=== PATIENT | female | born 1960 | race Caucasian/White ===

== ENCOUNTER → 2016-12-23 | Outpatient (CLI) | payer MEDICARE, OTHER ==
[~2016-12-23] MED LIST: ARIP15TA36 PO; ARIP5TAB13 PO; BUPR75TA6 PO; CARI350T PO; CELE200C PO; CLON2TAB16 PO; DOXY100C2 PO; DULO60CA6 PO; GABA-586 PO; HYDR-2766 PO; HYDR16TA PO; HYDR25CA75 PO; LEVO150T5 PO; MAGN250T2 PO; MELA3TAB2 PO; MINO5POW MC; NIAC500T9 PO; OMEG500C PO; PRAS50CA PO; VITA1000 PO; VITA1TAB39 PO
--- NOTE | 2016-12-23 16:20 | RAD ---
Indication low back pain. No history of recent injury. AP and lateral views of the lumbar spine were obtained as well as a coned view targeted to the lumbosacral junction. Note is made of a previous examination of the lumbar spine 02/27/2015. Vertebral height is well maintained. There are degenerative changes predominantly at L1-2 manifested as mild disc space narrowing. Some facet degenerative changes are noted in the mid and lower lumbar spine. An acute bony finding is not seen. IMPRESSION: Modest degenerative changes in the lumbar spine
== END | disposition home or self-care (01) ==
LOC: DXRADRC 15:59
DX: M47.896 Other spondylosis, lumbar region (principal)
CPT/HCPCS: 72100

== ENCOUNTER → 2017-01-12 | Outpatient (CLI) | payer MEDICARE, OTHER ==
--- NOTE | 2017-01-12 17:30 | RAD ---
AP view of the pelvis and frog-leg view of both hips Indications: Weight bearing pain of both hips. Right hip: No acute fracture or dislocation or osteolytic process or significant arthritic change is seen. Left hip: No acute fracture or dislocation or osteolytic process or significant arthritic change is seen. Calcific tendinitis of the gluteus minimus tendinous attachment to the greater trochanter is seen. Pelvis: No diastases of the symphysis pubis or either SI joint is seen. The pelvic bones are otherwise unremarkable. IMPRESSION: No significant osseous abnormality. Calcific tendinitis of the gluteus minimus tendon of the left hip.
== END | disposition home or self-care (01) ==
LOC: RAD 15:45
PROVIDERS: ATTEND General Practice
DX: M76.02 Gluteal tendinitis, left hip (principal); M25.551 Pain in right hip
CPT/HCPCS: 73521

== ENCOUNTER → 2017-09-09 | Outpatient (CLI) | payer MEDICARE, OTHER ==
--- NOTE | 2017-09-09 16:40 | RAD ---
Right shoulder radiograph 09/09/2017 INDICATION: Chronic shoulder pain. COMPARISON: None available. TECHNIQUE: 3 views the right shoulder are provided. FINDINGS: There is no acute fracture or dislocation. Bone mineralization is within normal limits. Joint spaces are maintained. Regional soft tissues are within normal limits. There is no soft tissue gas or osseous erosion. Osseous excrescence arising from the superior margin of the acromion may represent an osteochondroma given cortical medullary continuity. IMPRESSION: No acute fracture or dislocation. There may be a small osteochondroma arising from the superior margin of the acromion. Electronically signed by: Steff Camarillo MD (09/09/2017 4:38 PM) [facility]
== END | disposition home or self-care (01) ==
LOC: PMG 15:24
PROVIDERS: ATTEND Physician Assistant
DX: M25.511 Pain in right shoulder (principal); G89.29 Other chronic pain
CPT/HCPCS: 73030

== ENCOUNTER 2017-12-21 13:25 | Emergency (ER) | payer OTHER ==
[~2017-12-21] VITALS: Ht 154.9 cm; Wt 88.5 kg
[2017-12-21 14:02] LABS: BASO # 0.1 x10^3/uL (0.0-0.2); BASO % 1 % (0-3); EOS # 0.2 x10^3/uL (0.0-0.7); EOS % 3 % (0-3); HEMATOCRIT 39.4 % (36.0-47.0); HEMOGLOBIN 13.2 g/dL (12.0-15.5); LYMPH # 2.5 x10^3/uL (1.0-4.8); LYMPH % 42 % (24-48); MEAN CORPUSCULAR HEMOGLOBIN 30 pg (25-35); MEAN CORPUSCULAR HGB CONC 33 g/dL (31-37); MEAN CORPUSCULAR VOLUME 89 fL (79-100); MONO # 0.5 x10^3/uL (0.0-1.1); MONO % 9 % (0-9); NEUT # 2.7 x10^3uL (1.8-7.7); NEUT % 45 % (31-73); PLATELET COUNT 355 x10^3/uL (140-400); RED BLOOD COUNT 4.41 x10^6/uL (3.50-5.40); RED CELL DISTRIBUTION WIDTH 14.3 % (11.5-14.5); WHITE BLOOD COUNT 6.1 x10^3/uL (4.0-11.0)
[2017-12-21 14:16] LABS: ALBUMIN 3.7 g/dL (3.4-5.0); ALBUMIN/GLOBULIN RATIO 1.1 (1.0-1.7); CREATININE 1.1 mg/dL (0.6-1.0); POTASSIUM 4.1 mmol/L (3.5-5.1); TOTAL BILIRUBIN 0.3 mg/dL (0.2-1.0)
[2017-12-21] MEDS ORDERED: CEPH-264 PO (14:26)
--- NOTE | 2017-12-21 14:26 | PHYS DOC ---
Past History Past Medical History: Anxiety, Depression, Fibromyalgia, Hypertension, Other Past Surgical History: Gastric Bypass, Hysterectomy Smoking: Non-smoker Alcohol Use: None Drug Use: None Adult General Chief Complaint Chief Complaint: SKIN PROBLEM HPI HPI Patient is a 57 year old female who sent from primary care physician office because of IV antibiotics treatment for right inguinal wound. Patient has history of hidradenitis and inguinal wound for several months and treated by primary care physician with IM Rocephin on end of November but wound culture showed Proteus mirabilis with resistance to several antibiotic and patient is allergic to several other antibiotic and primary care physician recommended patient coming to ER for IV antibiotic and hospitalization. Patient is not diabetic and denies fever and chills, wound drainage, change of condition of her wound. Review of Systems Review of Systems Constitutional: Denies fever or chills [] Eyes: Denies change in visual acuity, redness, or eye pain [] HENT: Denies nasal congestion or sore throat [] Respiratory: Denies cough or shortness of breath [] Cardiovascular: No additional information not addressed in HPI [] GI: Denies abdominal pain, nausea, vomiting, bloody stools or diarrhea [] : Denies dysuria or hematuria [] Musculoskeletal: Denies back pain or joint pain [] Integument: Denies rash, reports skin lesions [] Neurologic: Denies headache, focal weakness or sensory changes [] Endocrine: Denies polyuria or polydipsia [] All other systems were reviewed and found to be within normal limits, except as documented in this note. Allergies Allergies Allergies Coded Allergies Type Severity Reaction Last Updated Verified Penicillins Allergy Unknown 05/16/13 Yes Sulfa (Sulfonamide Antibiotics) Allergy Unknown 05/16/13 Yes cefuroxime axetil Allergy Unknown 05/16/13 Yes morphine Allergy Unknown 06/15/13 Yes Physical Exam Physical Exam Constitutional: Well developed, well nourished, no acute distress, non-toxic appearance, obese. [] HENT: Normocephalic, atraumatic Eyes: PERRLA, EOMI, conjunctiva normal, no discharge. [] Neck: Normal range of motion, no tenderness, supple, no stridor. [] Cardiovascular:Heart rate regular rhythm, no murmur [] Lungs & Thorax: Bilateral breath sounds clear to auscultation [] Abdomen: Bowel sounds normal, soft, no tenderness, no masses, no pulsatile masses. [] Skin: Warm, dry, right groin area with erythema and 3 skin ulcer without sign of abscess Back: No tenderness, no CVA tenderness. [] Extremities: No tenderness, no cyanosis, no clubbing, ROM intact, no edema. [] Neurologic: Alert and oriented X 3, normal motor function, normal sensory function, no focal deficits noted. [] Psychologic: Affect normal, judgement normal, mood normal. [] Current Patient Data Vital Signs Vital Signs Date Time Temp Pulse Resp B/P (MAP) Pulse Ox O2 Delivery O2 Flow Rate FiO2 12/21/17 13:44 98.7 92 22 95 Room Air Lab Results Laboratory Tests Test 12/21/17 13:51 White Blood Count 6.1 x10^3/uL (4.0-11.0) Red Blood Count 4.41 x10^6/uL (3.50-5.40) Hemoglobin 13.2 g/dL (12.0-15.5) Hematocrit 39.4 % (36.0-47.0) Mean Corpuscular Volume 89 fL (79-100) Mean Corpuscular Hemoglobin 30 pg (25-35) Mean Corpuscular Hemoglobin Concent 33 g/dL (31-37) Red Cell Distribution Width 14.3 % (11.5-14.5) Platelet Count 355 x10^3/uL (140-400) Neutrophils (%) (Auto) 45 % (31-73) Lymphocytes (%) (Auto) 42 % (24-48) Monocytes (%) (Auto) 9 % (0-9) Eosinophils (%) (Auto) 3 % (0-3) Basophils (%) (Auto) 1 % (0-3) Neutrophils # (Auto) 2.7 x10^3uL (1.8-7.7) Lymphocytes # (Auto) 2.5 x10^3/uL (1.0-4.8) Monocytes # (Auto) 0.5 x10^3/uL (0.0-1.1) Eosinophils # (Auto) 0.2 x10^3/uL (0.0-0.7) Basophils # (Auto) 0.1 x10^3/uL (0.0-0.2) Erythrocyte Sedimentation Rate Pending Sodium Level 140 mmol/L (136-145) Potassium Level 4.1 mmol/L (3.5-5.1) Chloride Level 104 mmol/L (98-107) Carbon Dioxide Level 28 mmol/L (21-32) Anion Gap 8 (6-14) Blood Urea Nitrogen 13 mg/dL (7-20) Creatinine 1.1 mg/dL (0.6-1.0) H Estimated GFR (Cockcroft-Gault) 51.0 BUN/Creatinine Ratio 12 (6-20) Glucose Level 92 mg/dL (70-99) Lactic Acid Level 1.6 mmol/L (0.4-2.0) Calcium Level 9.0 mg/dL (8.5-10.1) Total Bilirubin 0.3 mg/dL (0.2-1.0) Aspartate Amino Transferase (AST) 34 U/L (15-37) Alanine Aminotransferase (ALT) 54 U/L (14-59) Alkaline Phosphatase 103 U/L (46-116) Total Protein 7.0 g/dL (6.4-8.2) Albumin 3.7 g/dL (3.4-5.0) Albumin/Globulin Ratio 1.1 (1.0-1.7) EKG EKG [] Radiology/Procedures Radiology/Procedures [] Course & Med Decision Making Course & Med Decision Making Pertinent Labs reviewed. (See chart for details) Evaluation of patient in ER showed 57-year-old female patient with history of chronic right inguinal ulcer related to hidradenitis and sent from primary care physician office for hospitalization. Patient did not have abscess or drainage of pus. Dr. Nesbitt was informed at 1400 and agreed with discharging patient home with outpatient treatment with cephalexin. Dragon Disclaimer Dragon Disclaimer This electronic medical record was generated, in whole or in part, using a voice recognition dictation system. Departure Departure: Impression: Primary Impression: Skin ulcer Additional Impressions: Hydradenitis Proteus mirabilis infection Disposition: 01 HOME, SELF-CARE (at 1423) Condition: STABLE Referrals: ROCHELLE OLEARY (PCP) Patient Instructions: Wound Care, [id number] Additional Instructions: Keep wound clean and dry, expose the wound to the air Follow-up with your primary care physician in 2-3 days Return to ER if not getting better Scripts Cephalexin (KEFLEX) 500 Mg Capsule 2 CAP PO Q12HR, #40 CAP Prov: CAMPBELL INTERIANO MD 12/21/17 Problem Qualifiers CAMPBELL INTERIANO MD Dec 21, 2017 14:26
[2017-12-21 14:31] VITALS: BP 141/105
[2017-12-21 15:06] LABS: SEDIMENTATION RATE 8 (0-25)
== END 2017-12-21 14:32 | disposition home or self-care (01) ==
LOC: ER 13:25
DX: L98.499 Non-pressure chronic ulcer of skin of other sites with unspecified severity (principal); L73.2 Hidradenitis suppurativa; B96.4 Proteus (mirabilis) (morganii) as the cause of diseases classified elsewhere; M79.7 Fibromyalgia; I10 Essential (primary) hypertension; Z98.84 Bariatric surgery status; Z88.0 Allergy status to penicillin; Z88.2 Allergy status to sulfonamides; Z88.5 Allergy status to narcotic agent; Z88.8 Allergy status to other drugs, medicaments and biological substances
CPT/HCPCS: 36415; 80053; 83605; 85025; 85651; 87040; 99284

== ENCOUNTER → 2018-06-08 | Outpatient (CLI) | payer OTHER ==
[~2018-06-08] MED LIST changes: +CEPH-264 PO; -HYDR-2766 PO; +HYDR-2769 PO
--- NOTE | 2018-06-08 10:37 | RAD ---
EXAM: Right foot, 3 views. HISTORY: Pain. COMPARISON: None. FINDINGS: 3 views of the right foot are obtained. There is no fracture, dislocation or subluxation. There is an accessory navicular, an incidental finding. There is a small plantar spur. There is slight enthesopathy at the Achilles tendon insertion. IMPRESSION: No acute osseous finding. Electronically signed by: Jane Woods MD (06/08/2018 10:34 AM) [id number]
== END | disposition home or self-care (01) ==
LOC: RAD 09:46
PROVIDERS: ATTEND Physician Assistant
DX: M77.51 Other enthesopathy of right foot and ankle (principal); M89.8X7 Other specified disorders of bone, ankle and foot
CPT/HCPCS: 73630

== ENCOUNTER → 2018-09-27 | Outpatient (CLI) | payer OTHER, MEDICAID ==
--- NOTE | 2018-09-27 11:30 | CARD ---
MR#: [id number] Date of Study: 09/27/2018 Ordering Physician: TRICIA BEAR, Referring Physician: TRICIA BEAR, Tech: Samantha Cooney VICTORINO APPROVED REPORT EXAM: Two-dimensional and M-mode echocardiogram with Doppler and color Doppler. Other Information Quality : Technically Limited Technically limited study due to morbid obesity INDICATION Peripheral Edema 2D DIMENSIONS RVDd2.8 (2.9-3.5cm)Left Atrium(2D)3.2 (1.6-4.0cm) IVSd0.9 (0.7-1.1cm)Aortic Root(2D)2.6 (2.0-3.7cm) LVDd5.4 (3.9-5.9cm)LVOT Diameter2.3 (1.8-2.4cm) PWd0.8 (0.7-1.1cm)LVDs3.7 (2.5-4.0cm) FS (%) 31.6 %SV83.9 ml LVEF(%)59.0 (>50%) Aortic Valve AoV Peak Larry.150.7cm/sAoV VTI28.0cm AO Peak GR.9.1mmHgLVOT Peak Larry.155.6cm/s LVOT VTI 30.04cmAO Mean GR.6mmHg MAKENNA (VMAX)4.34jd4WZJ (VTI)4.35cm2 Mitral Valve MV E Kxkpbgsa03.7cm/sMV DECEL OTZL023rh MV A Mwnqbrmg14.0cm/sE/A Ratio0.8 Tricuspid Valve TR P. Knkztghq636xv/sRAP YOFEDNOY0fcOx TR Peak Gr.18jyHuHRGY63lxFs Pulmonary Vein S1 Orxvaene26.7cm/sD2 Wgsaicky44.2cm/s LEFT VENTRICLE The left ventricle is normal size. There is borderline concentric left ventricular hypertrophy. The l eft ventricular systolic function is normal and the ejection fraction is within normal range. The Eje ction Fraction is 55-60%. There is normal LV segmental wall motion. Transmitral Doppler flow pattern is Grade I-abnormal relaxation pattern. RIGHT VENTRICLE The right ventricle is normal size. The right ventricular systolic function is normal. ATRIA The left atrium size is normal. The right atrium size is normal. The interatrial septum is intact wit h no evidence for an atrial septal defect or patent foramen ovale as noted on 2-D or Doppler imaging. AORTIC VALVE The aortic valve is not well visualized but appears to be functioning normally by Doppler interrogati on. Doppler and Color Flow revealed no significant aortic regurgitation. There is no significant aort ic valvular stenosis. MITRAL VALVE The mitral valve is calcified but opens well. There is no evidence of mitral valve prolapse. There is no mitral valve stenosis. Doppler and Color Flow revealed no mitral valve regurgitation noted. TRICUSPID VALVE The tricuspid valve is normal in structure and function. Doppler and Color Flow revealed trace tricus pid regurgitation. The PA pressure was estimated at 29 mmHg. There is no tricuspid valve stenosis. PULMONIC VALVE The pulmonic valve is not well visualized. Doppler and Color Flow revealed no pulmonic valvular regur gitation. There is no pulmonic valvular stenosis. GREAT VESSELS The aortic root is normal in size. The ascending aorta is not well seen. The IVC was not visualized. PERICARDIAL EFFUSION There is no evidence of significant pericardial effusion. Critical Notification Critical Value: No <Conclusion> The left ventricle is normal size. The left ventricular systolic function is normal and the ejection fraction is within normal range. The Ejection Fraction is 55-60%. There is borderline concentric left ventricular hypertrophy. There is no significant aortic valvular stenosis. Doppler and Color Flow revealed no significant aortic regurgitation. Doppler and Color Flow revealed no mitral valve regurgitation noted. Doppler and Color Flow revealed trace tricuspid regurgitation. The PA pressure was estimated at 29 mmHg. Signed by : Tricia Bear MD Electronically Approved : 09/27/2018 11:29:35
--- NOTE | 2018-09-27 11:45 | RAD ---
MR#: [id number] Date of Study: 09/27/2018 Ordering Physician: TRICIA LEAVITT, Referring Physician: TRICIA LEAVITT, Tech: Snow Henry RDMS, NOÉT APPROVED REPORT Bilateral Lower Extremity Venous Study for DVT Patient Location: OUT-PATIENT Indications NO HX OF DVT, NO DISCOLORATION IN ANKLES, NO VISIBLE VV, OBESITY Risk Factors Obesity The bilateral lower extremity deep veins were evaluated for thrombus with color Doppler, spectral and grayscale images. On the right the grayscale images of the common femoral, superficial femoral and popliteal veins do n ot demonstrate any evidence of thrombus and these veins appear to be compressible. The below-knee vei ns were not well visualized but grossly appear to be compressible. Spectral imaging and color Doppler do not reveal any evidence of obstruction to flow with normal respirophasic variation above the knee . Below the knee there is spontaneous flow noted. On the left, the grayscale images of the common femoral, superficial femoral and popliteal veins do n ot demonstrate any evidence of thrombus and these veins appear to be compressible. The below-knee vei ns again were not well visualized but grossly appear to be compressible. Spectral imaging and color D oppler do not reveal any evidence of obstruction to flow with normal respirophasic variation above th e knee. The below-knee veins demonstrate spontaneous flow. Vein Imaging (Right) CFV (R): Compressible SFJ (R): Compressible FEM (R): Compressible POP (R): Compressible DFV (R): Compressible PTV (R): Compressible GSV (R): Compressible Peroneals (R): Compressible Vein Imaging (Left) CFV (L): Compressible SFJ (L): Compressible FEM (L): Compressible POP (L): Compressible DFV (L): Compressible PTV (L): Compressible GSV (L): Compressible Peroneals (L): Compressible Doppler Evaluation (Right) CFV (R): Spontaneous POP (R):Spontaneous Doppler Evaluation (Left) CFV (L):Spontaneous POP (L):Spontaneous Critical Notification Critical Value: No <Conclusion> NEGATIVE FOR DVT BLE Signed by : Norbert Billy, Electronically Approved : 09/27/2018 11:45:09
--- NOTE | 2018-09-27 11:48 | RAD ---
MR#: [id number] Date of Study: 09/27/2018 Ordering Physician: TRICIA LEAVITT, Referring Physician: TRICIA LEAVITT, Tech: Snow Henry RDMS, RVT APPROVED REPORT Patient Location : OUT-PATIENT Indications Lower Extremity Pain : Bilateral Lower Extremity Edema : Bilateral Grayscale images of the bilateral saphenofemoral junctions and the greater and lesser saphenous veins do not reveal any obvious evidence of thrombus. Bilateral reflux times are less than 1 seconds. The right great saphenous vein measures 5.1 mm and the left great saphenous vein measures 4.8 mm. Negative for reflux in the bilateral lesser saphenous veins. Risk Factors Obesity Deep System Deep Venous Thrombosis present : No Deep Venous Reflux present : No Greater Saphenous Veins (GSV) Significant venous relux noted in the RIGHT GSV at the following levels : Superficial Femoral Junctio n Significant venous relux noted in the LEFT GSV at the following levels : Proximal Thigh Accessory Veins Right Anterior Accessory Vein : Present : Yes Reflux : No Leftt Anterior Accessory Vein : Present : Yes Reflux : No Critical Notification Critical Value: No <Conclusion> No evidence of reflux in the bilateral greater and lesser saphenous veins. Signed by : Norbert Billy, Electronically Approved : 09/27/2018 11:48:15
== END | disposition home or self-care (01) ==
LOC: ECHO 08:55
PROVIDERS: ATTEND Internal Medicine Cardiovascular Disease
DX: M79.89 Other specified soft tissue disorders (principal); I05.9 Rheumatic mitral valve disease, unspecified; R00.8 Other abnormalities of heart beat
CPT/HCPCS: 93306; 93970

== ENCOUNTER → 2019-03-03 | Outpatient (CLI) | payer OTHER, MEDICAID ==
[~2019-03-03] MED LIST changes: -MELA3TAB2 PO; +MELA3TAB56 PO
--- NOTE | 2019-03-03 17:05 | RAD ---
DATE: 03/03/2019. EXAM: DIGITAL SCREEN BILAT W/CAD. HISTORY: Routine mammographic screening. COMPARISON: 02/26/2015. This study was interpreted with the benefit of Computerized Aided Detection (CAD). FINDINGS: Breast Density: SCATTERED The breast parenchyma shows scattered fibroglandular densities. Breast parenchyma level B.. Benign calcifications are noted on the left. There are no suspicious masses, microcalcifications or architectural distortion. The parenchymal pattern is stable. BI-RADS CATEGORY: 2 BENIGN FINDING(S). RECOMMENDED FOLLOW-UP: 12M 12 MONTH FOLLOW-UP. PQRS compliance statement: Patient information was entered into a reminder system with a target due date 03/03/2020 for the next mammogram. Mammography is a sensitive method for finding small breast cancers, but it does not detect them all and is not a substitute for careful clinical examination. A negative mammogram does not negate a clinically suspicious finding and should not result in delay in biopsying a clinically suspicious abnormality. "Our facility is accredited by the [employer] Mammography Program."
== END | disposition home or self-care (01) ==
LOC: MAMMO 08:55
PROVIDERS: ATTEND Physician Assistant
DX: Z12.31 Encounter for screening mammogram for malignant neoplasm of breast (principal); N64.89 Other specified disorders of breast
CPT/HCPCS: 77067

== ENCOUNTER 2019-06-03 09:16 | Inpatient (IN) | payer OTHER, MEDICAID ==
[~2019-06-03] VITALS: Ht 154.9 cm; Wt 144.0 kg
[~2019-06-03 09:16] MED LIST changes: +MELA3TAB4 PO; -MELA3TAB56 PO
[2019-06-03] MEDS ORDERED: ACETAMINOPHEN 500 MG TABLET PO ONE (09:45)
[2019-06-03] MEDS ORDERED: IV NORMAL SALINE 1,000ML 1,000 ML IV SCH (10:00)
[2019-06-03] MEDS ORDERED: VANCOMYCIN 1.5 GM in IV NORMAL SALINE 500ML 500 ML IV ONE (10:00)
[2019-06-03 10:12] LABS: BASO # 0.1 x10^3/uL (0.0-0.2); BASO % 1 % (0-3); EOS # 0.3 x10^3/uL (0.0-0.7); EOS % 5 % (0-3); HEMATOCRIT 32.5 % (36.0-47.0); HEMOGLOBIN 10.4 g/dL (12.0-15.5); LYMPH # 1.9 x10^3/uL (1.0-4.8); LYMPH % 32 % (24-48); MEAN CORPUSCULAR HEMOGLOBIN 26 pg (25-35); MEAN CORPUSCULAR HGB CONC 32 g/dL (31-37); MEAN CORPUSCULAR VOLUME 82 fL (79-100); MONO # 0.8 x10^3/uL (0.0-1.1); MONO % 13 % (0-9); NEUT % 50 % (31-73); PLATELET COUNT 363 x10^3/uL (140-400); RED BLOOD COUNT 3.96 x10^6/uL (3.50-5.40); RED CELL DISTRIBUTION WIDTH 16.3 % (11.5-14.5)
--- NOTE | 2019-06-03 10:13 | RAD ---
CHEST AP ONLY History: Fever Comparison: May 03, 2013 Findings: Patchy left basilar opacity. No pleural effusion. No pneumothorax. Normal heart size. Prior granulomatous disease within the chest. Impression: 1. Patchy left basilar opacity, may represent atelectasis or consolidation. PA and lateral view of the chest can better assess if clinically indicated. Electronically signed by: Martinez Decker DO (06/03/2019 10:10 AM) [id number]
--- NOTE | 2019-06-03 10:20 | PHYS DOC ---
Past History Past Medical History: Anxiety, Depression, Fibromyalgia, Hypertension, Other Past Surgical History: Gastric Bypass, Hysterectomy Smoking: Non-smoker Alcohol Use: None Drug Use: None Adult General Chief Complaint Chief Complaint: CELLULITIS HPI HPI 59-year-old female presents with a left leg cellulitis. The patient has been treated with outpatient antibiotics for the last 1 month for a cellulitis of the left lower extremity. It improved but did not go away. It has come back significantly worse at this time. Her entire lower leg is red and hot and it extends up into her thigh. Her whole leg is very swollen. She had outpatient labs yesterday that showed an elevated d-dimer. Her doctor notified her of this this morning. Patient has been feeling more short of breath from her baseline. He advised that she come to the hospital. The patient is concerned about a DVT in addition to the cellulitis. She has had a low-grade fever at home. No travel history. She is homebound. Review of Systems Review of Systems Constitutional: Fever[] Eyes: Denies change in visual acuity, redness, or eye pain [] HENT: Denies nasal congestion or sore throat [] Respiratory: shortness of breath [] Cardiovascular: No additional information not addressed in HPI [] GI: Denies abdominal pain, nausea, vomiting, bloody stools or diarrhea [] : Denies dysuria or hematuria [] Musculoskeletal: Denies back pain or joint pain [] Integument: Cellulitis left leg [] Neurologic: Denies headache, focal weakness or sensory changes [] Endocrine: Denies polyuria or polydipsia [] All other systems were reviewed and found to be within normal limits, except as documented in this note. Current Medications Current Medications Current Medications Medications (Trade) Dose Ordered Sig/[facility] Start Time Stop Time Status Last Admin Dose Admin Acetaminophen (Tylenol) 1,000 mg 1X ONCE 06/03/19 09:45 06/03/19 09:46 DC Sodium Chloride 1,000 ml @ 1,000 mls/hr Q1H 06/03/19 10:00 06/03/19 10:59 Allergies Allergies Allergies Coded Allergies Type Severity Reaction Last Updated Verified Penicillins Allergy Unknown 05/16/13 Yes Sulfa (Sulfonamide Antibiotics) Allergy Unknown 05/16/13 Yes cefuroxime axetil Allergy Unknown 05/16/13 Yes morphine Allergy Unknown 06/15/13 Yes Physical Exam Physical Exam Constitutional: Well developed, morbidly obese, well nourished, mild acute distress, non-toxic appearance. [] HENT: Normocephalic, atraumatic, bilateral external ears normal, oropharynx moist, no oral exudates, nose normal. [] Eyes: PERRLA, EOMI, conjunctiva normal, no discharge. [] Neck: Normal range of motion, no tenderness, supple, no stridor. [] Cardiovascular: Heart rate 105, regular rhythm, no murmur [] Lungs & Thorax: Bilateral breath sounds clear to auscultation [] Abdomen: Bowel sounds normal, soft, no tenderness, no masses, no pulsatile masses. [] Skin: Hot, erythematous skin of the lower left leg up to the thigh. 3+ pitting edema [] Back: No tenderness, no CVA tenderness. [] Extremities: No tenderness, no cyanosis, no clubbing, ROM intact, no edema. [] Neurologic: Alert and oriented X 3, normal motor function, normal sensory function, no focal deficits noted. [] Psychologic: Affect normal, judgement normal, mood normal. [] EKG EKG Sinus tachycardia, rate 109, normal axis, no ST elevations or depressions. [] Radiology/Procedures Radiology/Procedures [] Impressions: Chest CTA History: Shortness of breath, elevated d-dimer Technique: After bolus of intravenous contrast, CT imaging was performed of the chest. Multiplanar reconstruction images to include MIP reconstruction images are submitted. Exposure: One or more of the following individualized dose reduction techniques were utilized for this examination: 1. Automated exposure control 2. Adjustment of the mA and/or kV according to patient size 3. Use of iterative reconstruction technique. Comparison: None Findings: Accurate evaluation for pulmonary embolic disease is limited due to the degree of contrast opacification of the pulmonary arteries. No obvious embolism is identified of the main pulmonary arteries although otherwise cannot accurately evaluate for pulmonary embolic disease. There are some calcified bilateral hilar nodes. There is no pericardial fluid, pleural fluid, lobar infiltrate, or pneumothorax. There is minimal dependent atelectasis bilaterally. There are some calcified nodules of the left and lower lobes. There are postsurgical changes of the stomach. There is mild hepatic steatosis. There is multilevel thoracic degenerative disc disease and spondylosis. Impression: 1. No convincing pulmonary embolism is identified in the central, main pulmonary arteries although otherwise cannot accurately evaluate for pulmonary embolic disease on this exam. Electronically signed by: Ben Moreno MD (06/03/2019 11:17 AM) [facility] DICTATED AND SIGNED BY: BEN MORENO MD DATE: 06/03/19 1117 CC: ELEANOR MANRIQUEZ DO; ROCHELLE OLEARY ~ VENOUS LOWER EXTREMITY LEFT History: Shortness of breath. Left leg edema. Comparison: None. Discussion: Multiple longitudinal and transverse high resolution real-time images of the venous system of left lower extremity were obtained with color and Doppler sampling. The common femoral, superficial femoral, popliteal and proximal calf veins are all patent and demonstrate normal flow and compressibility. Normal respiratory phasicity and augmentation is present. Impression: 1. No evidence of deep vein thrombosis within the left lower extremity. Electronically signed by: Martinez Decker DO (06/03/2019 11:59 AM) [id number] DICTATED AND SIGNED BY: MARTINEZ DECKER DO DATE: 06/03/19 1159 CC: ELEANOR MANRIQUEZ DO; ROCHELLE OLEARY ~ Course & Med Decision Making Course & Med Decision Making Pertinent Labs and Imaging studies reviewed. (See chart for details) The patient appears to have a cellulitis. She meets sepsis criteria. She has been given 30mL/kg of ideal body weight of fluids. I have also ordered blood cultures and a lactic acid. We will start her on vancomycin and Zosyn. Her allergies have only caused rash. The patient's white count is normal. Her lactic acid is 2.2. Her ultrasound is negative for DVT or CT [place] of the chest is negative for pulmonary embolus. This appears to be cellulitis with sepsis. She has been started on her antibiotics. I spoke with Dr. Nesbitt about the patient and he has accepted her for admission. 37 minutes of critical care time was spent on this patient exclusive of other billable procedures. [] Dragon Disclaimer Dragon Disclaimer This electronic medical record was generated, in whole or in part, using a voice recognition dictation system. Departure Departure: Impression: Primary Impression: Cellulitis of left leg Additional Impression: Sepsis Disposition: 09 ADMITTED INPATIENT Admitting Physician: Dustin Nesbitt Condition: STABLE Referrals: ROCHELLE OLEARY (PCP) Sepsis Assessment: Date and Time of Assessment Date: Jun 03, 2019 Time: 10:16 Respirations Respiratory Effort: Normal Respiratory Pattern: Normal Cardiovascular Pulse Rhythm: Regular HEART: No murmurs noted Lung Sounds Breath Sounds: Clear Capillary Refill Capillary Refill: Rt Hand < 3 seconds Peripheral Pulse Pulse Location: Monitor Pulse Strength: Normal (2+) Pulse Assessment Method: Monitor Integumentary Skin: Warm, Rash Skin Moisture: Dry Skin Turgor: Normal Skin Color: erythema Fingernail Color: WNL Sepsis Assessment: Date and Time of Assessment Date: Jun 03, 2019 Time: 10:59 Respirations Respiratory Effort: Normal Respiratory Pattern: Normal Cardiovascular Pulse Rhythm: Regular HEART: No murmurs noted Lung Sounds Breath Sounds: Clear Capillary Refill Capillary Refill: Rt Hand < 3 seconds Peripheral Pulse Pulse Location: Monitor Pulse Strength: Normal (2+) Pulse Assessment Method: Monitor Integumentary Skin: Warm Skin Moisture: Dry Skin Turgor: Normal Skin Color: erythema Fingernail Color: WNL Problem Qualifiers Additional Impression: Sepsis Sepsis type: sepsis due to unspecified organism Sepsis acute organ dysfunc tion status: without acute organ dysfunction Qualified Codes: A41.9 - Sepsis, unspecified organism ELEANOR MANRIQUEZ DO Jun 03, 2019 10:20
[2019-06-03 10:24] LABS: CALCIUM 9.6 mg/dL (8.5-10.1); CREATININE 1.3 mg/dL (0.6-1.0); GFR 41.8; POTASSIUM 3.9 mmol/L (3.5-5.1)
[2019-06-03] MEDS ORDERED: IOHEXOL 350 MG/ML 100 ML VIAL. IV ONE (10:30)
[2019-06-03] MEDS ORDERED: PIPERACILLIN/TAZOBACTAM 3.375 GM in IV NORMAL SALINE 50ML 50 ML IV ONE (10:30)
[2019-06-03 10:31] LABS: ALBUMIN 3.5 g/dL (3.4-5.0); ALBUMIN/GLOBULIN RATIO 0.9 (1.0-1.7); TOTAL BILIRUBIN 0.2 mg/dL (0.2-1.0); TOTAL PROTEIN 7.3 g/dL (6.4-8.2)
[2019-06-03] MEDS ORDERED: PIPERACILLIN/TAZOBACTAM 3.375 GM VIAL IV ONE (10:31)
[2019-06-03] MEDS ORDERED: IV NORMAL SALINE 500ML 500 ML ONE ×2 (10:31→10:33)
[2019-06-03] MEDS ORDERED: IV NORMAL SALINE 50ML 50 ML ONE (10:31)
[2019-06-03] MEDS ORDERED: VANCOMYCIN 1 GM VIAL. ONE (10:31)
[2019-06-03] MEDS: IV NORMAL SALINE 1,000ML 1,000 ML IV SCH ×3 (10:42→19:15)
[2019-06-03] MEDS ORDERED: CONTRAST GIVEN MC PRN (10:45)
[2019-06-03] MEDS ORDERED: VANCOMYCIN 2 GM in IV NORMAL SALINE 500ML 500 ML IV ONE (11:00)
--- NOTE | 2019-06-03 11:20 | RAD ---
Chest CTA History: Shortness of breath, elevated d-dimer Technique: After bolus of intravenous contrast, CT imaging was performed of the chest. Multiplanar reconstruction images to include MIP reconstruction images are submitted. Exposure: One or more of the following individualized dose reduction techniques were utilized for this examination: 1. Automated exposure control 2. Adjustment of the mA and/or kV according to patient size 3. Use of iterative reconstruction technique. Comparison: None Findings: Accurate evaluation for pulmonary embolic disease is limited due to the degree of contrast opacification of the pulmonary arteries. No obvious embolism is identified of the main pulmonary arteries although otherwise cannot accurately evaluate for pulmonary embolic disease. There are some calcified bilateral hilar nodes. There is no pericardial fluid, pleural fluid, lobar infiltrate, or pneumothorax. There is minimal dependent atelectasis bilaterally. There are some calcified nodules of the left and lower lobes. There are postsurgical changes of the stomach. There is mild hepatic steatosis. There is multilevel thoracic degenerative disc disease and spondylosis. Impression: 1. No convincing pulmonary embolism is identified in the central, main pulmonary arteries although otherwise cannot accurately evaluate for pulmonary embolic disease on this exam. Electronically signed by: Luis Miguel Resendez MD (06/03/2019 11:17 AM) [facility]
--- NOTE | 2019-06-03 12:01 | RAD ---
VENOUS LOWER EXTREMITY LEFT History: Shortness of breath. Left leg edema. Comparison: None. Discussion: Multiple longitudinal and transverse high resolution real-time images of the venous system of left lower extremity were obtained with color and Doppler sampling. The common femoral, superficial femoral, popliteal and proximal calf veins are all patent and demonstrate normal flow and compressibility. Normal respiratory phasicity and augmentation is present. Impression: 1. No evidence of deep vein thrombosis within the left lower extremity. Electronically signed by: Martinez Decker DO (06/03/2019 11:59 AM) [id number]
[2019-06-03 15:00] VITALS: BP 108/71
[2019-06-03] MEDS ORDERED: FURO20TA3 PO (15:18)
[2019-06-03] MEDS ORDERED: OXYC-411 PO (15:18)
[2019-06-03] MEDS ORDERED: MEMA28CA5 PO (15:18)
[2019-06-03] MEDS ORDERED: CYCL1DRO EACHEYE (15:18)
[2019-06-03] MEDS ORDERED: MISO200T4 PO (15:18)
[2019-06-03] MEDS ORDERED: TIZA4TAB2 PO ×2 (15:18→18:44)
[2019-06-03] MEDS ORDERED: DICL75TA PO (15:18)
[2019-06-03] MEDS ORDERED: TRAZ150T49 PO (15:19)
[2019-06-03] MEDS ORDERED: LEVO88TA4 PO (15:19)
[2019-06-03] MEDS ORDERED: LISI40TA PO (15:19)
[2019-06-03] MEDS ORDERED: GABA300C8 PO (15:19)
[2019-06-03] MEDS ORDERED: BUSP15TA PO ×2 (15:19→18:44)
[2019-06-03] MEDS ORDERED: LAMO150T4 PO (15:19)
[2019-06-03] MEDS ORDERED: DULO60CA98 PO (15:19)
[2019-06-03] MEDS: VANCOMYCIN PER PHARMACY MC PRN (15:41)
--- NOTE | 2019-06-03 18:06 | HP ---
ADMIT DATE: 06/03/2019 HISTORY OF PRESENT ILLNESS: The patient is a 59-year-old female patient who came to the Emergency Room with complaint of left lower extremity cellulitis. Apparently, the patient was treated as an outpatient with multiple antibiotics started about a month ago. It improved, but did not go away and it comes back significantly, worse at this time. She was treated with Levaquin and second course was with clindamycin without much improvement and unfortunately, the redness and swelling has involved the entire leg and extended proximally to her thigh and the whole leg is very swollen. She had outpatient labs yesterday done, which showed elevated D-dimer and her primary care physician notified her of this this morning as she has been feeling more short of breath from her baseline and therefore, he advised that she come to the Emergency Room. She is concerned that she might have a deep vein thrombosis in addition cellulitis. She did have a low-grade fever at home and there was no travel. She is mostly bedbound and she has a caregiver. She was extensively investigated in the Emergency Room and her lab work showed a white cell count 6000 and given her elevated D-dimer, she had a chest x-ray, which showed patchy left basilar opacity, may represent atelectasis or consolidation. PA and lateral view of the chest can better assess if this clinically indicated. She had Doppler ultrasound of left lower extremity, which showed no evidence of deep vein thrombosis within her left lower extremity and CT angio of the chest showed no convincing pulmonary embolism identified in the central main pulmonary arteries, although otherwise cannot accurately evaluate for pulmonary embolic disease in this exam. There are postsurgical changes of the stomach. There is mild hepatic steatosis. There is multilevel thoracic degenerative disk disease and spondylosis. The accurate evaluation for pulmonary embolic disease is limited due to degree of contrast opacification of the pulmonary arteries, no obvious embolism identified within the main pulmonary arteries, although otherwise cannot accurately evaluate for pulmonary embolic disease. There are some calcified bilateral hilar lymph nodes. There is no pericardial fluid, pleural fluid, lobar infiltrate or pneumothorax. Minimal dependent atelectasis bilaterally. There are some calcified nodules in the left lower lobe. There are postsurgical changes of the stomach. The patient was admitted and was started on IV vancomycin and piperacillin; however, the PATIENT IS ALLERGIC TO PENICILLIN and I will switch her to meropenem. PAST MEDICAL HISTORY: Significant for degenerative disk disease, fibromyalgia, hypertension, hyperlipidemia, hypothyroidism, chronic obstructive pulmonary disease, morbid obesity, obstructive sleep apnea. PAST SURGICAL HISTORY: Significant for total abdominal hysterectomy, ____ benign tumor of her left leg and removal of benign tumor of her right breast. She did have esophagogastroduodenoscopy as well as colonoscopy. ALLERGIES: SHE IS ALLERGIC TO PENICILLIN, SULFA DRUGS, CEFUROXIME, ____ AND MORPHINE. MEDICATIONS: We do not have yet the list of all her medications that she is on. She was on Keflex 500 mg, she takes 2 capsules twice a day; doxycycline hyclate 100 mg twice a day; Soma 350 mg p.o. 3 times a day; niacin 500 mg at bedtime; omega-3 fatty acid 500 mg daily; minoxidil 5 gram powder apply topically; Celebrex 200 mg twice a day; hydrocodone/APAP 10/325 one tablet every 4 hours. She is on Exalgo 16 mg p.o. daily, clonazepam 2 mg daily, gabapentin 300 mg 3 times a day, Wellbutrin 75 mg once a day, Cymbalta 60 mg daily, Abilify 15 mg once a day, hydroxyzine pamoate 25 mg 4 times a day, magnesium oxide 250 mg once a day, levothyroxine 150 mcg once a day, vitamin B complex 1 tablet once a day, vitamin E 1000 International Units daily, melatonin 3 mg daily, Prasterone for dehydroepiandrosterone 50 mg daily. FAMILY HISTORY: She has 3 older sisters, one of them has Graves' disease. Her younger sister is transgender, but otherwise medically stable. Her father is still alive at the age of 92 and has frontotemporal dementia. Mother is alive at age of 83 and has had uterine cancer when she was 39 years old and she has generalized osteoarthritis. SOCIAL HISTORY: She is . She has one son who lives in [place]. She lives alone. She has a caregiver. She quit smoking when she was 22 years old. She smoked from the age of 10 to 22. She does not drink alcohol or use any recreational drugs. 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 REVIEW OF SYSTEMS: The patient denies any blurring of vision, cataract, glaucoma or macular degeneration. Denied any earache, tinnitus or sensorineural deafness. Denied any nosebleeds, stuffy nose or postnasal drip. Denied any sore throat, sore tongue, toothache, hoarseness of voice or difficulty swallowing. Denied any nausea, vomiting, diarrhea or constipation. Denied any hematemesis, melena, hematochezia. Denied any dysuria or frequency. She did complain of frequency and incontinence, but denied any hematuria or dysuria. Denied any nocturia. Denied any chest pain. Did complain of shortness of breath as well, but denied any or paroxysmal nocturnal dyspnea. Denied any cough, phlegm or hemoptysis. Denied any chills, rigors or fever. PHYSICAL EXAMINATION: GENERAL: On arrival to the Emergency Room, she looked well and was clearly in no apparent respiratory distress. No pallor, jaundice or cyanosis. No lymphadenopathy or thyromegaly. No jugular venous distension. No limb edema. She does have bilateral lower extremity edema. VITAL SIGNS: Her heart rate was 109, blood pressure was 150/94, temperature was 99.2, respiratory rate was 22 and oxygen saturation was 97% on 1 liter of oxygen. HEAD, EYES, EARS, NOSE AND THROAT: Showed normocephalic, atraumatic. NECK: Supple. HEART: Showed normal first and second heart sounds. No gallop or murmur. CHEST: Clear to auscultation. Equal bilateral chest expansion, air entry, vesicular sounds. Could not appreciate any crepitation or rhonchi. ABDOMEN: Distended, soft, nontender. NEUROLOGICALLY: She is awake, alert, responding appropriately. All cranial nerves intact. EXTREMITIES: She moves extremities without difficulty. She ambulates with a walker. Examination of both lower extremities showed no clubbing or cyanosis, but she has marked erythema that extends all the way from the dorsum of the left foot all the way to the inguinal area on the left with diffuse erythema. The skin is hot to touch. LABORATORY DATA: Her lab work showed a white cell count of 6000, hemoglobin 10.4, hematocrit 32, MCV was 82 and a platelet count of 363,000 with a manual differential showed 50% polymorphs, 2% lymphocytes and 13% monocytes. Her chemistry showed a serum sodium 138, potassium 3.9, chloride 100, bicarbonate 27, anion gap of 11, BUN 11, creatinine 1.3, estimated GFR was 42 mL per minute. Her glucose was 81. Lactic acid was 2.2, calcium was 9.6. Total bilirubin, AST, ALT, alkaline phosphatase were normal. Total protein was 7.3, albumin was 3.5. Her chest x-ray showed that the patient has patchy left basilar opacity, may represent atelectasis or consolidation. PA and lateral view of the chest can better assess if clinically indicated. She did have venous Doppler ultrasound of her left lower extremity, which showed that there is no evidence of deep vein thrombosis within the left lower extremity. The CT angio of the chest showed that no convincing pulmonary embolism identified in the central main pulmonary arteries, otherwise cannot accurately exclude that, evaluate for pulmonary embolism disease in this exam. There are some postsurgical changes of the stomach. There is mild hepatic steatosis. There is multilevel thoracic degenerative disk disease. So, in summary, this is a 59-year-old female patient who was admitted with recurrent left lower extremity cellulitis that failed outpatient therapy. She will be started on IV vancomycin as well as meropenem and we will monitor her response on a daily basis. She will be on DVT prophylaxis as per pharmacy recommendation. ISABELLE GIL MD DR: DANIELLE/elena JOB#: [id number] / [id number]
[2019-06-03] MEDS ORDERED: hydrOXYzine PAMOATE 25 MG CAPSULE PO PRN (18:15)
[2019-06-03] MEDS ORDERED: LUBI24CA7 PO (18:31)
[2019-06-03] MEDS ORDERED: CAPS42.513 TP (18:44)
[2019-06-03] MEDS ORDERED: BREX3TAB PO (18:44)
[2019-06-03] MEDS ORDERED: LAMO100T37 PO (18:44)
[2019-06-03] MEDS ORDERED: FLUT16SP21 NS (18:44)
[2019-06-03] MEDS ORDERED: BIOT10004 PO (18:44)
[2019-06-03 19:11] VITALS: BP 141/85
[2019-06-03] MEDS: PIPERACILLIN/TAZOBACTAM 3.375 GM in IV NORMAL SALINE 50ML 50 ML IV SCH (19:15)
--- NOTE | 2019-06-03 20:09 | EKG ---
[address] [address] Test Date: 2019-06-03 Test Time: 09:48:10 Pat Name: ROSEANNE VERDUZCO Department: Room: 113 A Gender: F [employer] Change Attendant: : 1960 Requested By: ELEANOR MANRIQUEZ Order Number: [id number] Reading MD: Norbert Billy MD Measurements Intervals [place] Rate: 109 P: 4 RI: 140 QRS: 12 QRSD: 80 T: 28 QT: 328 QTc: 443 Interpretive Statements SINUS TACHYCARDIA NON-SPECIFIC ST/T CHANGES Electronically Signed On 06-05-2019 11:57:59 CDT by Norbert Billy MD
[2019-06-03] MEDS ORDERED: ALBUTEROL SULFATE 2.5 MG/3 ML NEBU. NEB PRN (20:45)
[2019-06-03] MEDS: tiZANidine 4 MG TABLET. PO SCH (20:55)
[2019-06-03] MEDS: traZODone 150 MG TABLET. PO SCH (20:55)
[2019-06-03] MEDS: busPIRone 15 MG TABLET. PO SCH (20:55)
[2019-06-03] MEDS: lamoTRIgine 100 MG TABLET. PO SCH (20:56)
[2019-06-03] MEDS: MELATONIN 3 MG TABLET PO SCH (20:56)
[2019-06-03] MEDS: DULoxetine HCL 60 MG CAPSULE.DR PO SCH (20:56)
[2019-06-03] MEDS: oxyCODONE/APAP 10/325 1 TAB TABLET PO SCH (20:56)
[2019-06-03] MEDS: ENOXAPARIN ** NOTE DOSE ** SYRINGE SQ SCH (20:57)
[2019-06-03] MEDS: cycloSPORINE 0.05% OPTH 1 DROP DROPERETTE OU SCH (21:00)
[2019-06-03] MEDS: LUBIPROSTONE 24 MCG CAPSULE PO SCH (22:20)
[2019-06-03 22:45] VITALS: BP 103/53
[2019-06-04] MEDS: PIPERACILLIN/TAZOBACTAM 3.375 GM in IV NORMAL SALINE 50ML 50 ML IV SCH ×5 (00:30→23:38)
[2019-06-04 05:14] VITALS: BP 143/79
[2019-06-04] MEDS: LEVOTHYROXINE 88 MCG TABLET PO SCH (05:44)
[2019-06-04 06:31] LABS: HEMOGLOBIN 9.6 g/dL (12.0-15.5); RED BLOOD COUNT 3.65 x10^6/uL (3.50-5.40); RED CELL DISTRIBUTION WIDTH 16.3 % (11.5-14.5); WHITE BLOOD COUNT 5.2 x10^3/uL (4.0-11.0)
[2019-06-04 06:45] LABS: ALBUMIN/GLOBULIN RATIO 0.9 (1.0-1.7); CALCIUM 8.8 mg/dL (8.5-10.1); CREATININE 1.1 mg/dL (0.6-1.0); GFR 50.7; POTASSIUM 3.8 mmol/L (3.5-5.1); TOTAL BILIRUBIN 0.2 mg/dL (0.2-1.0); TOTAL PROTEIN 6.2 g/dL (6.4-8.2)
[2019-06-04] MEDS: OMEGA-3 FATTY ACIDS/FISH OIL 1,000 MG CAPSULE. PO SCH (08:45)
[2019-06-04] MEDS: tiZANidine 4 MG TABLET. PO SCH ×3 (08:45→20:47)
[2019-06-04] MEDS: DULoxetine HCL 60 MG CAPSULE.DR PO SCH ×2 (08:45→20:47)
[2019-06-04] MEDS: busPIRone 15 MG TABLET. PO SCH ×3 (08:46→20:47)
[2019-06-04] MEDS: MEMANTINE 10 MG TABLET. PO SCH ×2 (08:46→20:47)
[2019-06-04] MEDS: oxyCODONE/APAP 10/325 1 TAB TABLET PO SCH (08:46)
[2019-06-04] MEDS: cycloSPORINE 0.05% OPTH 1 DROP DROPERETTE OU SCH ×2 (08:46→20:46)
[2019-06-04] MEDS: FLUTICASONE 50MCG/NASAL SPRAY 16GM BOTTLE. NS SCH (08:47)
[2019-06-04] MEDS: ENOXAPARIN ** NOTE DOSE ** SYRINGE SQ SCH ×2 (08:47→20:46)
[2019-06-04] MEDS: IV NORMAL SALINE 1,000ML 1,000 ML IV SCH (08:50)
[2019-06-04] MEDS ORDERED: BIOTIN 500 MCG PO SCH (09:00)
[2019-06-04] MEDS: LUBIPROSTONE 24 MCG CAPSULE PO SCH ×2 (09:00→20:47)
[2019-06-04] MEDS: NON FORMULARY ITEM (Brexpiprazole (Rexulti) 1 TAB) PO SCH (09:00)
[2019-06-04 10:30] VITALS: BP 100/66
--- NOTE | 2019-06-04 11:12 | PN ---
DATE: 06/04/2019 SUBJECTIVE: The patient is resting, almost flat in bed comfortably, in no apparent distress. She did complain of pain. Apparently, she normally takes half a tablet every 3-4 hours at home and said is taking a whole tablet, but she is afebrile and erythema is receding. Actually it was extending all the way to the left groin area and now it is just above the left knee joint. PHYSICAL EXAMINATION: GENERAL: When I examined her, she looked well and was clearly in no apparent respiratory distress. Pale, no jaundice, cyanosis or thyromegaly. No jugular venous distention. No limb edema. VITAL SIGNS: Her heart rate was 87, blood pressure was 143/79, temperature was 98.2, respiratory rate was 20, and oxygen saturation was 96% on 1 liter of oxygen. The rest of clinical examination is stable. Her both lower extremities are slightly swollen, but the erythema is receding distally. Her intake over the last 24 hours was incompletely recorded. LABORATORY DATA: Her lab work this morning showed a white cell count 5200, hemoglobin 9.6, hematocrit 30, MCV 82, and a platelet count of 307,000. Her serum sodium was 140, potassium 3.8, chloride 104, bicarbonate 25, anion gap of 11, BUN 9, creatinine was 1.1, estimated GFR was 50 mL per minute. Her glucose 125, calcium was 8.8. Total bilirubin, AST, ALT, alkaline phosphatase were normal. Total protein 6.2, albumin 3. ASSESSMENT: Left lower extremity cellulitis that has failed outpatient treatment, now responding well to IV vancomycin and Zosyn. Other medical problems include fibromyalgia, degenerative disk disease, hypertension, hyperlipidemia, hypothyroidism, chronic obstructive pulmonary disease, morbid obesity, obstructive sleep apnea. PLAN: My plan is to continue with these 2 antibiotics. We did send blood for culture and sensitivity, the results are still pending. I will change her pain medication to be given as Percocet 5/325 one tablet every 4 hours. ISABELLE GIL MD DR: DANIELLE/elena JOB#: [id number] / [id number]
[2019-06-04] MEDS: CAPSAICIN 0.025% TOPICAL CREAM 60GM TUBE. TP PRN (12:04)
[2019-06-04] MEDS: VANCOMYCIN 2 GM in IV NORMAL SALINE 500ML 500 ML IV SCH (12:53)
[2019-06-04 14:55] VITALS: BP 122/84
[2019-06-04] MEDS: oxyCODONE/APAP 5/325 1 TAB TABLET PO PRN ×2 (16:31→21:04)
[2019-06-04] MEDS: VANCOMYCIN PER PHARMACY MC PRN (16:35)
[2019-06-04 20:18] VITALS: BP 146/87
[2019-06-04] MEDS: LACTOBACILLUS RHAMNOSUS GG 1 CAPSULE. PO SCH (20:46)
[2019-06-04] MEDS: traZODone 150 MG TABLET. PO SCH (20:47)
[2019-06-04] MEDS: lamoTRIgine 100 MG TABLET. PO SCH (20:48)
[2019-06-04] MEDS: MELATONIN 3 MG TABLET PO SCH (20:48)
[2019-06-04 23:52] VITALS: BP 114/76
[2019-06-05 05:33] VITALS: BP 142/82
[2019-06-05] MEDS: oxyCODONE/APAP 5/325 1 TAB TABLET PO PRN ×5 (05:34→23:35)
[2019-06-05] MEDS: PIPERACILLIN/TAZOBACTAM 3.375 GM in IV NORMAL SALINE 50ML 50 ML IV SCH ×4 (05:34→23:35)
[2019-06-05] MEDS: LEVOTHYROXINE 88 MCG TABLET PO SCH (05:34)
[2019-06-05 06:37] LABS: CALCIUM 8.9 mg/dL (8.5-10.1); GFR 56.6; POTASSIUM 3.9 mmol/L (3.5-5.1)
[2019-06-05] MEDS: NON FORMULARY ITEM (Brexpiprazole (Rexulti) 1 TAB) PO SCH (09:00)
[2019-06-05] MEDS: cycloSPORINE 0.05% OPTH 1 DROP DROPERETTE OU SCH ×2 (09:00→20:36)
[2019-06-05] MEDS: CAPSAICIN 0.025% TOPICAL CREAM 60GM TUBE. TP PRN (09:01)
[2019-06-05] MEDS: DULoxetine HCL 60 MG CAPSULE.DR PO SCH ×2 (09:02→20:29)
[2019-06-05] MEDS: LACTOBACILLUS RHAMNOSUS GG 1 CAPSULE. PO SCH ×2 (09:02→20:28)
[2019-06-05] MEDS: OMEGA-3 FATTY ACIDS/FISH OIL 1,000 MG CAPSULE. PO SCH (09:02)
[2019-06-05] MEDS: MEMANTINE 10 MG TABLET. PO SCH ×2 (09:02→20:28)
[2019-06-05] MEDS: busPIRone 15 MG TABLET. PO SCH ×3 (09:02→20:28)
[2019-06-05] MEDS: tiZANidine 4 MG TABLET. PO SCH ×3 (09:02→20:27)
[2019-06-05] MEDS: FLUTICASONE 50MCG/NASAL SPRAY 16GM BOTTLE. NS SCH (09:02)
[2019-06-05] MEDS: ENOXAPARIN ** NOTE DOSE ** SYRINGE SQ SCH ×2 (09:03→20:32)
[2019-06-05] MEDS: LUBIPROSTONE 24 MCG CAPSULE PO SCH ×2 (09:04→20:30)
[2019-06-05 10:50] VITALS: BP 124/74
--- NOTE | 2019-06-05 11:30 | PN ---
DATE: 06/05/2019 SUBJECTIVE: The patient is resting, slightly propped up in bed, in no apparent distress. She is awake, alert and the swelling, redness and pain in her left lower extremity is subsiding. She continued to have obviously back pain. PHYSICAL EXAMINATION: GENERAL: When I examined her this morning, she looked well and was clearly in no apparent respiratory distress. No pallor, jaundice, cyanosis or thyromegaly. No jugular venous distention. No limb edema. VITAL SIGNS: Her heart rate was 80, blood pressure was 124/74, temperature was 98.3, respiratory rate 20, and oxygen saturation was 94% on 1 liter of oxygen. HEAD, EYES, EARS, NOSE AND THROAT: Showed normocephalic, atraumatic. NECK: Supple. HEART: Showed normal first and second heart sounds. No gallop or murmur. CHEST: Clear to auscultation. No crepitation or rhonchi. ABDOMEN: Distended, soft, nontender. NEUROLOGIC: She was awake, alert, responding appropriately. All cranial nerves are intact. She moves extremities without difficulty. Her left lower extremity is erythematous, although the erythema is fading, slightly more swollen. LABORATORY DATA: Her lab work as of yesterday showed a white cell count 5200, hemoglobin 10, hematocrit 30, MCV 82, and platelet count 307,000. Serum sodium was 142, potassium 3.9, chloride 105, bicarbonate 28, anion gap of 9, BUN 8, creatinine 1, estimated GFR was 56 mL per minute, her glucose was 89, calcium was 8.9. ASSESSMENT: Left lower extremity cellulitis, improving, to continue with IV vancomycin and Zosyn for now. OTHER MEDICAL PROBLEMS: Includes: A. Fibromyalgia. B. Degenerative disk disease. C. Hypertension. D. Hyperlipidemia. E. Hypothyroidism. F. Chronic obstructive pulmonary disease. G. Morbid obesity and obstructive sleep apnea. PLAN: Plan is to continue for pain management. Continue with IV antibiotic. She gets only vancomycin once a day. We might be able to discharge her home as an outpatient. She has also acute kidney injury that is improving. Her creatinine came down from 1.3 to 1. ISABELLE GIL MD DR: DANIELLE/elena JOB#: [id number] / [id number]
[2019-06-05] MEDS: VANCOMYCIN PER PHARMACY MC PRN (12:08)
[2019-06-05] MEDS: VANCOMYCIN 2 GM in IV NORMAL SALINE 500ML 500 ML IV SCH (12:15)
[2019-06-05 15:31] VITALS: BP 119/81
[2019-06-05 19:15] VITALS: BP 151/95
[2019-06-05] MEDS: traZODone 150 MG TABLET. PO SCH (20:27)
[2019-06-05] MEDS: MELATONIN 3 MG TABLET PO SCH (20:29)
[2019-06-05] MEDS: lamoTRIgine 100 MG TABLET. PO SCH (20:29)
[2019-06-05 23:43] VITALS: BP 140/83
[2019-06-06] MEDS: VANCOMYCIN 2 GM in IV NORMAL SALINE 500ML 500 ML IV SCH ×2 (00:20→13:52)
[2019-06-06] MEDS: oxyCODONE/APAP 5/325 1 TAB TABLET PO PRN ×4 (03:42→15:59)
[2019-06-06] MEDS: PIPERACILLIN/TAZOBACTAM 3.375 GM in IV NORMAL SALINE 50ML 50 ML IV SCH ×2 (05:32→16:10)
[2019-06-06] MEDS: LEVOTHYROXINE 88 MCG TABLET PO SCH (05:32)
[2019-06-06 05:44] VITALS: BP 150/85
[2019-06-06] MEDS: cycloSPORINE 0.05% OPTH 1 DROP DROPERETTE OU SCH (07:49)
[2019-06-06] MEDS: LUBIPROSTONE 24 MCG CAPSULE PO SCH (07:49)
[2019-06-06] MEDS: tiZANidine 4 MG TABLET. PO SCH ×2 (07:50→14:29)
[2019-06-06] MEDS: busPIRone 15 MG TABLET. PO SCH ×2 (07:50→14:29)
[2019-06-06] MEDS: ENOXAPARIN ** NOTE DOSE ** SYRINGE SQ SCH (07:50)
[2019-06-06] MEDS: LACTOBACILLUS RHAMNOSUS GG 1 CAPSULE. PO SCH (07:50)
[2019-06-06] MEDS: FLUTICASONE 50MCG/NASAL SPRAY 16GM BOTTLE. NS SCH (07:50)
[2019-06-06] MEDS: MEMANTINE 10 MG TABLET. PO SCH (07:50)
[2019-06-06] MEDS: OMEGA-3 FATTY ACIDS/FISH OIL 1,000 MG CAPSULE. PO SCH (07:51)
[2019-06-06] MEDS: DULoxetine HCL 60 MG CAPSULE.DR PO SCH (07:51)
[2019-06-06] MEDS: NON FORMULARY ITEM (Brexpiprazole (Rexulti) 1 TAB) PO SCH (08:32)
[2019-06-06 10:14] VITALS: BP 132/85
--- NOTE | 2019-06-06 13:56 | PN ---
DATE: SUBJECTIVE: The patient is resting, slightly propped up in bed, no apparent distress. On questioning her, denied any complaint. Nursing staff did not voice any concern. OBJECTIVE: GENERAL: On examining her, she looked well and was clearly in no apparent respiratory distress, pale. No jaundice, cyanosis or thyromegaly. No jugular venous distention. No limb edema. VITAL SIGNS: Her heart rate was 70, blood pressure was 132/85, temperature was 98.5, respiratory rate 20 and oxygen saturation was 93% on 1 liter of oxygen. HEENT: Examination of the head, eyes, ears, nose and throat showed normocephalic, atraumatic. NECK: Supple. HEART: Showed normal first and second heart sounds. No gallop or murmur. CHEST: Clear to auscultation. No crepitation or rhonchi. ABDOMEN: Distended, soft, nontender. No guarding or rigidity. No organomegaly. All hernial orifice intact. Bowel sounds normal. NEUROLOGIC: She was awake, alert, responding appropriately. All cranial nerves intact. She moves extremities without difficulty. She ambulates with a walker. EXTREMITIES: Her left lower extremity redness and swelling has completely subsided. PLAN: My plan is to place a midline and switch her to Rocephin 2 g IV daily and she can be discharged home with home health to continue treatment for another week. ISABELLE GIL MD DR: DANIELLE/elena JOB#: [id number] / [id number]
[2019-06-06 15:18] VITALS: BP 125/84
[2019-06-06] MEDS ORDERED: CEFT2PIG2 IV (16:57)
--- NOTE | 2019-06-06 17:00 | DISCH ---
HOME HEALTH DISCHARGE/MEDS DISCHARGE INFORMATION: Discharge Date: Jun 06, 2019 Final Diagnosis: Problems Medical Problems: (1) Cellulitis of left leg Status: Acute (2) Sepsis Status: Acute Condition on Discharge: Stable CODE STATUS: Code Status: Full HOME HEALTH: Face to Face: I certify this patient is under my care and that I, or a nurse practitioner or physician's food and beverage assistant working with me, had a face to face encounter that meets the physician face to face encounter requirements with this patient on 06/06/19 Medical Condition(s): Other Half-Way For: Admin/Educate Injections Physical Therapy For: Evalulation/Treatment Occupational Therapy For: Evaluation/Treatment POST DISCHARGE ORDERS: Activity Instructions for Disc: Resume previous activity DIET AFTER DISCHARGE: Regular CERTIFICATION STATEMENT: Certification Statement: Based on the above finding, I certify that this patient is confined to the home and needs intermittent retirement care, physical therapy and/or speech therapy, or continues to need occupational therapy.~ This patient is under my care, and I have initiated the establishment of the plan of care.~ This patient will be followed by myself or a community physician who will periodically review the plan of care. DISCHARGE MEDICATIONS: Home Meds Active Scripts Ceftriaxone Na/Dextrose,Iso (CEFTRIAXONE 2 GM-D5W BAG) 2 Gm/50 Ml Piggyback, 2 GM IV DAILY] for CELLULITIS for 7 Days, EACH Prov:ISABELLE GLI MD 06/06/19 Reported Medications Tizanidine Hcl (TIZANIDINE HCL) 4 Mg Tablet, 4 MG PO TID for ., TAB 06/03/19 Brexpiprazole (Rexulti) 3 Mg Tablet, 1 TAB PO DAILY for . for 30 Days, #30 TAB 0 Refills 06/03/19 Lamotrigine (LAMOTRIGINE) 100 Mg Tab.er.24, 100 MG PO QHS for ., TAB.SR 06/03/19 Fluticasone Propionate (FLUTICASONE PROPIONATE NASAL SPRAY) 16 Gm [place].susp, 2 SPRAY NS DAILY for ., EACH 06/03/19 Capsaicin (CAPSAICIN) 42.5 Gm Cream..g., 1 CHASE TP PRN 3-4XDAILY PRN for ., GM 0 Refills 06/03/19 Buspirone Hcl (BUSPIRONE HCL) 15 Mg Tablet, 15 MG PO TID for anxiety, TAB 06/03/19 Biotin (Biotin) 1,000 Mcg Tab.chew, 500 MCG PO DAILY for ., TAB.CHEW 06/03/19 Lubiprostone (AMITIZA) 24 Mcg Capsule, 1 CAP PO BID for . for 30 Days, #60 CAP 0 Refills 06/03/19 Duloxetine Hcl (DULOXETINE HCL) 60 Mg Capsule.dr, 1 CAP PO BID for depression 06/03/19 Trazodone Hcl (TRAZODONE HCL) 150 Mg Tablet, 1 TAB PO QHS for insomnia 06/03/19 Levothyroxine Sodium (LEVOTHYROXINE SODIUM) 88 Mcg Tablet, 1 TAB PO DAILY06 for thyroid 06/03/19 Lisinopril (LISINOPRIL) 40 Mg Tablet, 1 TAB PO DAILY for bp 06/03/19 Furosemide (FUROSEMIDE) 20 Mg Tablet, 1 TAB PO BID92 for . 06/03/19 Memantine HCl (Memantine HCl ER) 28 Mg Cap.spr.24, 1 CAP PO DAILY for memory 06/03/19 Cyclosporine (RESTASIS) 1 Each [place]pe[place], 1 DROP EACHEYE BID for . 06/03/19 Diclofenac Sodium (DICLOFENAC SODIUM) 75 Mg Tablet.dr, 1 TAB PO BID for . 06/03/19 Misoprostol (MISOPROSTOL) 200 Mcg Tablet, 1 TAB PO BID for bp 06/03/19 Oxycodone Hcl/Acetaminophen (OXYCODONE-ACETAMINOPHEN 10-325) 1 Each Tablet, 1 TAB PO TID for pain 06/03/19 Hydroxyzine Pamoate (HYDROXYZINE PAMOATE) 25 Mg Capsule, 50 MG PO QID PRN for PAIN 10/04/13 Prasterone (Dhea) (DHEA) 50 Mg Capsule, 50 MG PO 05/16/13 Melatonin (MELATONIN) 3 Mg Tablet, 3 MG PO 05/16/13 Vitamin B Complex (B COMPLEX) 1 Each Tablet.er, 1 EACH PO 05/16/13 ISABELLE GIL MD Jun 06, 2019 17:00
== END 2019-06-06 18:11 | disposition home health service (06) | DRG 872 ==
LOC: ER 09:16 → 1 SOUTH 13:05
PROVIDERS: ADMIT Internal Medicine; ATTEND Internal Medicine
PROC: 05HD33Z Insertion of Infusion Device into Right Cephalic Vein, Percutaneous Approach (ICD-10-PCS; principal; 2019-06-06)
DX: A41.9 Sepsis, unspecified organism (principal); L03.116 Cellulitis of left lower limb; N17.9 Acute kidney failure, unspecified; J96.10 Chronic respiratory failure, unspecified whether with hypoxia or hypercapnia; I10 Essential (primary) hypertension; M79.7 Fibromyalgia; F41.9 Anxiety disorder, unspecified; F32.9 Major depressive disorder, single episode, unspecified; K76.0 Fatty (change of) liver, not elsewhere classified; M51.34 Other intervertebral disc degeneration, thoracic region; E03.9 Hypothyroidism, unspecified; J44.9 Chronic obstructive pulmonary disease, unspecified; G47.33 Obstructive sleep apnea (adult) (pediatric); E66.01 Morbid (severe) obesity due to excess calories; E78.5 Hyperlipidemia, unspecified; M47.9 Spondylosis, unspecified; Z98.84 Bariatric surgery status; Z90.710 Acquired absence of both cervix and uterus; Z88.0 Allergy status to penicillin; Z87.891 Personal history of nicotine dependence; Z80.49 Family history of malignant neoplasm of other genital organs; Z88.2 Allergy status to sulfonamides; Z88.1 Allergy status to other antibiotic agents; Z88.5 Allergy status to narcotic agent; Z91.010 Allergy to peanuts
CPT/HCPCS: 36415; 71045; 71275; 80048; 80053; 80202; 83605; 85025; 85027; 87040; 93005; 93971; 96365; 96367; 96375; J0696; J1650; J2543; J3010; J3370; J7040; Q9967; 99285-25; J7030

== ENCOUNTER 2019-06-14 15:46 | Inpatient (IN) | payer OTHER, MEDICAID ==
[~2019-06-14] VITALS: Ht 154.9 cm; Wt 146.8 kg
[~2019-06-14 15:46] MED LIST changes: +BIOT10004 PO; +BREX3TAB PO; +BUSP15TA PO; +CAPS42.513 TP; +CEFT2PIG2 IV; +CYCL1DRO EACHEYE; +DICL75TA PO; +DULO60CA98 PO; +FLUT16SP21 NS; +FURO20TA3 PO; +GABA300C8 PO; +LAMO100T37 PO; +LAMO150T4 PO; +LEVO88TA4 PO; +LISI40TA PO; +LUBI24CA7 PO; +MEMA28CA5 PO; +MISO200T4 PO; +OXYC-411 PO; +TIZA4TAB2 PO; +TRAZ150T49 PO
[2019-06-14 16:08] VITALS: BP 157/88
[2019-06-14] MEDS ORDERED: hydrOXYzine PAMOATE 25 MG CAPSULE PO PRN (16:45)
[2019-06-14 16:54] LABS: CALCIUM 9.2 mg/dL (8.5-10.1); CREATININE 1.2 mg/dL (0.6-1.0); GFR 45.8; POTASSIUM 3.8 mmol/L (3.5-5.1)
[2019-06-14 16:59] LABS: ALBUMIN 3.5 g/dL (3.4-5.0); ALBUMIN/GLOBULIN RATIO 1.3 (1.0-1.7); TOTAL BILIRUBIN 0.2 mg/dL (0.2-1.0); TOTAL PROTEIN 6.2 g/dL (6.4-8.2)
--- NOTE | 2019-06-14 17:10 | NUR ---
Pt was wheeled onto unit at 1600. Pt denies any pain upon arrival. Bed in lowest position, call light within reach. Redness and warmth to L Leg noted. Dr. Nesbitt came to assess pt. Currently inputting orders. Pt instructed to call for any assistance. Heart healthy diet ordered for pt. Current medications verified with pt and . Pt is a direct admission from Dr. Almeida's office for Cellulitis of L upper and lower leg. Pt has picc line in L upper arm. Labs drawn along with blood cultures. Will continue to monitor and assess as appropiate.
--- NOTE | 2019-06-14 17:53 | HP ---
ADMIT DATE: 06/14/2019 HISTORY OF PRESENT ILLNESS: The patient is a 59-year-old female patient who was admitted to this facility on 06/03/2019 with complaint of left lower extremity cellulitis. She apparently was treated as an outpatient with multiple antibiotics, started about a month prior to her admission to [facility], it improved, but did not go away completely and did back significantly worse; however, she was treated with Levaquin, the second course was with clindamycin without much improvement and therefore, the patient was admitted to [facility]. Her lab work showed she had elevated D-dimer and her primary care physician notified her of this. As she was feeling short of breath, she was concerned that she might have a deep vein thrombosis in addition to cellulitis and therefore, she underwent venous Doppler ultrasound of her left lower extremity, which showed no evidence of deep vein thrombosis within her left lower extremity. CT angio of the chest showed no convincing evidence of pulmonary embolism identified in the central main pulmonary arteries, although otherwise cannot accurately evaluate for pulmonary embolic disease. She was admitted and was treated at that time with IV Zosyn and vancomycin and I did discharge her on ceftriaxone 2 grams IV after giving her a trial of that here to see whether she reacts. SHE CARRIES ALLERGIES TO PENICILLIN, SULFA DRUGS AND CEFUROXIME AXETIL WELL MORPHINE. Apparently, she was discharged on 06/06/2019 and was on ceftriaxone 2 g IV daily for about 4 days and then she started having redness and swelling of her left lower extremity, again about 5 days ago she saw her primary care physician and she was switched to doxycycline and Bactrim. Unfortunately, ceftriaxone was discontinued; however, the redness and swelling has recurred again. She also did complain of a low-grade fever at home and therefore she was admitted directly for further evaluation and treatment. PAST MEDICAL HISTORY: Significant for degenerative disk disease, fibromyalgia, hypertension, hyperlipidemia, hypothyroidism, chronic obstructive pulmonary disease, morbid obesity and obstructive sleep apnea. PAST SURGICAL HISTORY: Significant for total abdominal hysterectomy and bilateral salpingo-oophorectomy, benign tumor of her left leg and removal of benign tumor from right breast. She did have also gastric bypass surgery and underwent esophagogastroduodenoscopy as well as colonoscopy. ALLERGIES: SHE IS ALLERGIC TO PENICILLIN, SULFA DRUGS, CEFUROXIME AND MORPHINE. FAMILY HISTORY: She has 3 older sisters and 1 of them has Graves' disease. Her younger sister is transgender, but otherwise medically stable. Her father is still alive at the age of 92 and has frontotemporal dementia. Mother is alive at the age of 83, has had uterine cancer when she was 40 years old and she has generalized osteoarthritis. SOCIAL HISTORY: She is . She has 1 son who lives in [facility]. She lives alone. She has a caregiver. She quit smoking when she was 22 years old. She smoked from the age of 10 to 22. She does not drink alcohol or use recreational drugs. 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 MEDICATIONS: She is normally on following medications: She was on doxycycline 100 mg twice a day, Bactrim Double Strength twice a day. She is also on Soma 350 mg 3 times a day, niacin 500 mg at bedtime, omega-3 fatty acid 500 mg daily, minoxidil 5 gram powder apply topically, Celebrex 200 mg twice a day, hydrocodone/APAP 10/325 one tablet every 4 hours. She is on Exalgo 16 mg p.o. daily, clonazepam 2 mg daily, gabapentin 300 mg 3 times a day, Wellbutrin 75 mg once a day, Cymbalta 60 mg daily, Abilify 15 mg once a day, hydroxyzine pamoate 25 mg 4 times a day, magnesium oxide 250 mg once a day, levothyroxine 150 mcg once a day, vitamin B complex 1 tablet once a day, vitamin E 1000 International Units daily, melatonin 3 mg daily, Prasterone for dehydroepiandrosterone 50 mg daily. PHYSICAL EXAMINATION: GENERAL: When I saw her this afternoon, she was resting slightly propped up in bed, in no apparent respiratory distress. No pallor, jaundice, cyanosis or thyromegaly. No jugular venous distension. Mild bilateral lower extremity edema, more so on the left than right. VITAL SIGNS: Her heart rate was 96, blood pressure was 157/88, temperature was 98.6, respiratory rate 20 and oxygen saturation was 93% on room air. HEAD, EYES, EARS, NOSE AND THROAT: Showed normocephalic, atraumatic. NECK: Supple. HEART: Showed normal first and second heart sounds. No gallop, rub or murmur. CHEST: Clear to auscultation. No crepitation or rhonchi. ABDOMEN: Distended, soft, nontender. No guarding or rigidity. No organomegaly. All hernial orifice intact. Bowel sounds normal. NEUROLOGIC: She was awake, alert, responding appropriately. All cranial nerves intact. EXTREMITIES: She moves extremities without difficulty. Dictation Ends Here. ISABELLE GIL MD DR: DANIELLE/elena JOB#: [id number] / [id number]
[2019-06-14] MEDS: VANCOMYCIN PER PHARMACY MC PRN ×3 (18:59→21:35)
[2019-06-14] MEDS ORDERED: VANCOMYCIN 2 GM in IV NORMAL SALINE 500ML 500 ML IV ONE (19:00)
[2019-06-14] MEDS ORDERED: IOHEXOL 300 MG/ML 75 ML VIAL. IV ONE (19:30)
[2019-06-14] MEDS ORDERED: CONTRAST GIVEN MC PRN (19:30)
[2019-06-14 19:37] VITALS: BP 130/68
[2019-06-14] MEDS: MELATONIN 3 MG TABLET PO SCH (20:57)
[2019-06-14] MEDS: DULoxetine HCL 60 MG CAPSULE.DR PO SCH (20:57)
[2019-06-14] MEDS: GABAPENTIN 300 MG CAPSULE. PO SCH (20:57)
[2019-06-14] MEDS: cycloSPORINE 0.05% OPTH 1 DROP DROPERETTE OU SCH (20:57)
[2019-06-14] MEDS: OMEGA-3 FATTY ACIDS/FISH OIL 1,000 MG CAPSULE. PO SCH (20:57)
[2019-06-14] MEDS: busPIRone 15 MG TABLET. PO SCH (20:57)
[2019-06-14] MEDS: tiZANidine 4 MG TABLET. PO SCH (20:59)
[2019-06-14] MEDS: lamoTRIgine 100 MG TABLET. PO SCH (20:59)
[2019-06-14] MEDS ORDERED: oxyCODONE/APAP 10/325 1 TAB TABLET PO SCH (21:00)
[2019-06-14] MEDS: LUBIPROSTONE 24 MCG CAPSULE PO SCH (21:00)
[2019-06-14] MEDS ORDERED: traZODone 150 MG TABLET. PO SCH (21:00)
[2019-06-14] MEDS: MISOPROSTOL PO SCH (21:01)
--- NOTE | 2019-06-14 21:04 | RAD ---
Study: CT abdomen/pelvis with intravenous contrast Indication: Abdominal pain. Recurrent left lower extremity swelling and cellulitis. Comparison: No dedicated CT imaging of the abdomen/pelvis is available for review. Technique: Helical CT imaging performed of the abdomen and pelvis after the intravenous administration of 75 cc Omnipaque 300 contrast. Sagittal and coronal reformats were obtained. One or more of the following individualized dose reduction techniques were utilized for this examination: 1. Automated exposure control 2. Adjustment of the mA and/or kV according to patient size 3. Use of iterative reconstruction technique. Findings: Chest: Mild platelike atelectasis within the lingula. No newly seen abnormality throughout the lower mediastinum. Liver: Small subcapsular low-attenuation focus within the left hepatic lobe, image 40 series 2, is not fully characterized but is statistically most likely to represent a benign process such as a hemangioma in the absence of a known malignancy. Gallbladder/Biliary Tree: No CT evidence for acute cholecystitis. Nondilated biliary tree. Pancreas: Low-attenuation involving the pancreatic head and uncinate process favored on account of fatty infiltration. Spleen: Splenic granulomas. Adrenal Glands: No adrenal gland mass. Kidneys/Ureters/Bladder: Low-attenuation focus within the right kidney, image 72 series 2, measuring up to 4.3 cm with a density of approximately 11 Hounsfield units. No complex features by CT and this is most likely a simple cyst. No hydroureteronephrosis. Unremarkable urinary bladder. Reproductive Organs: The uterus is absent. No adnexal mass. Colon: Incompletely formed stool throughout much of the colon suggestive of a diarrheal state. Appendix: Normal. Small Bowel: No evidence for small bowel obstruction. Status post Roselia-en-Y gastric bypass without complicating features. Stomach: Roselia-en-Y gastric bypass. The alimentary and biliary limbs are unremarkable. Vasculature: Nonaneurysmal aorta. Mild calcific atherosclerosis. Lymph Nodes: Mildly prominent inguinal lymph nodes on the left. [employer] lymph node on image 145 series 2 measuring 1.3 cm short axis. 1 cm short axis left iliac chain lymph node on image 131 series 2. Peritoneum and Body Wall: Skin thickening at the lower margin of the patient's pannus with subjacent inflammatory changes. The appearance suggests panniculitis. Subcutaneous fatty stranding asymmetrically extends along the left aspect of the lower abdomen and left hemipelvis. Fat-containing umbilical hernia with mild fatty stranding within and around the hernia sac, image 102 series 2, favored reactive to panniculitis. Bones: Scattered degenerative changes involving the pelvis and visualized spine. Miscellaneous: None. Impression: 1. Skin thickening and reticulation of the subcutaneous fat along the patient's pannus and extending along the left lateral aspect of the lower abdomen through the pelvis suggesting panniculitis/cellulitis. Recommend correlation with direct inspection. No discrete fluid collection. 2. Sequela of Roselia-en-Y gastric bypass without complicating features. 3. Mildly prominent left inguinal and left iliac chain lymph nodes favored reactive given the body wall inflammatory changes. 4. Additional chronic findings as above. Electronically signed by: AUSTIN DE OLIVEIRA MD (06/14/2019 9:01 PM) [id number]
[2019-06-14] MEDS ORDERED: traZODone 150 MG TABLET. PO PRN (21:15)
[2019-06-14] MEDS: traZODone 150 MG TABLET. PO SCH (21:21)
[2019-06-14] MEDS: VANCOMYCIN 1.25 GM in IV NORMAL SALINE 250ML 250 ML IV SCH (21:22)
[2019-06-14 22:22] VITALS: BP 105/55
[2019-06-14] MEDS: MEROPENEM 1 GM in IV NORMAL SALINE 100ML 100 ML IV SCH (23:46)
[2019-06-15] MEDS: oxyCODONE/APAP 5/325 1 TAB TABLET PO PRN ×5 (04:13→20:52)
[2019-06-15 05:57] VITALS: BP 114/66
[2019-06-15 06:11] LABS: BASO % 0 % (0-3); EOS # 0.3 x10^3/uL (0.0-0.7); EOS % 6 % (0-3); HEMATOCRIT 27.6 % (36.0-47.0); HEMOGLOBIN 8.9 g/dL (12.0-15.5); LYMPH # 0.6 x10^3/uL (1.0-4.8); LYMPH % 11 % (24-48); MEAN CORPUSCULAR HEMOGLOBIN 26 pg (25-35); MEAN CORPUSCULAR HGB CONC 32 g/dL (31-37); MEAN CORPUSCULAR VOLUME 82 fL (79-100); MONO # 0.3 x10^3/uL (0.0-1.1); MONO % 7 % (0-9); NEUT # 3.9 x10^3uL (1.8-7.7); NEUT % 76 % (31-73); PLATELET COUNT 324 x10^3/uL (140-400); RED BLOOD COUNT 3.39 x10^6/uL (3.50-5.40); RED CELL DISTRIBUTION WIDTH 16.5 % (11.5-14.5); WHITE BLOOD COUNT 5.1 x10^3/uL (4.0-11.0)
[2019-06-15] MEDS: LEVOTHYROXINE 88 MCG TABLET PO SCH (06:17)
[2019-06-15] MEDS: MEROPENEM 1 GM in IV NORMAL SALINE 100ML 100 ML IV SCH ×3 (06:17→22:05)
[2019-06-15 06:27] LABS: C REACTIVE PROTEIN 9.7 mg/L (0-3.3)
[2019-06-15 06:39] LABS: ALBUMIN 3.3 g/dL (3.4-5.0); ALBUMIN/GLOBULIN RATIO 1.2 (1.0-1.7); CALCIUM 8.6 mg/dL (8.5-10.1); CREATININE 1.1 mg/dL (0.6-1.0); GFR 50.7; POTASSIUM 3.9 mmol/L (3.5-5.1); TOTAL BILIRUBIN 0.3 mg/dL (0.2-1.0)
[2019-06-15] MEDS: busPIRone 15 MG TABLET. PO SCH ×3 (08:03→20:30)
[2019-06-15] MEDS: LACTOBACILLUS RHAMNOSUS GG 1 CAPSULE. PO SCH (08:03)
[2019-06-15] MEDS: VANCOMYCIN 1.25 GM in IV NORMAL SALINE 250ML 250 ML IV SCH ×2 (08:03→20:29)
[2019-06-15] MEDS: MAGNESIUM CHLORIDE ER 64 MG TABLET.ER PO SCH (08:04)
[2019-06-15] MEDS: cycloSPORINE 0.05% OPTH 1 DROP DROPERETTE OU SCH ×2 (08:04→20:31)
[2019-06-15] MEDS: VITAMIN B COMPLEX CAPSULE. PO SCH (08:04)
[2019-06-15] MEDS: GABAPENTIN 300 MG CAPSULE. PO SCH ×3 (08:04→20:31)
[2019-06-15] MEDS: CHOLECALCIFEROL (VITAMIN D3) 1,000 UNIT TABLET PO SCH (08:04)
[2019-06-15] MEDS: MEMANTINE 10 MG TABLET. PO SCH ×2 (08:04→20:31)
[2019-06-15] MEDS: OMEGA-3 FATTY ACIDS/FISH OIL 1,000 MG CAPSULE. PO SCH ×2 (08:05→20:30)
[2019-06-15] MEDS: DULoxetine HCL 60 MG CAPSULE.DR PO SCH ×2 (08:05→20:30)
[2019-06-15] MEDS: BREXPIPRAZOLE PO SCH (08:05)
[2019-06-15] MEDS: tiZANidine 4 MG TABLET. PO SCH ×3 (08:05→20:30)
[2019-06-15] MEDS: FLUTICASONE 50MCG/NASAL SPRAY 16GM BOTTLE. NS SCH (08:06)
[2019-06-15] MEDS: LUBIPROSTONE 24 MCG CAPSULE PO SCH ×2 (08:06→20:33)
[2019-06-15] MEDS: CAPSAICIN 0.025% TOPICAL CREAM 60GM TUBE. TP PRN (08:06)
[2019-06-15] MEDS ORDERED: LACTOBACILLUS RHAMNOSUS GG 1 CAPSULE. PO SCH (09:00)
[2019-06-15] MEDS ORDERED: BIOTIN 500 MCG PO SCH (09:00)
[2019-06-15] MEDS: PRASTERONE 50 MG PO SCH (09:00)
[2019-06-15] MEDS: MISOPROSTOL PO SCH ×2 (09:00→21:00)
[2019-06-15 11:00] VITALS: BP 93/54
--- NOTE | 2019-06-15 12:52 | PN ---
DATE: 06/15/2019 SUBJECTIVE: The patient is resting, slightly propped up in bed, in no apparent respiratory distress. She continued to complain of pain, swelling and redness of her left lower extremity that extends all the way to the left groin has also some panniculitis involving the abdominal wall in the left side. PHYSICAL EXAMINATION: GENERAL: When I examined her, she looked pale, but no jaundice, cyanosis or thyromegaly. No jugular venous distension. No lower limb edema. VITAL SIGNS: Her heart rate was 83, blood pressure was 93/64, temperature was 97.6, respiratory rate 20, and oxygen saturation was 92%. The rest of clinical exam is stable. Her left lower extremity continued to be erythematous and swollen. Her intake was 1780, no output was recorded. LABORATORY DATA: Her lab work this morning showed a white cell count 5100, hemoglobin 9, hematocrit 27, MCV 82 and platelet count of 324,000. Her serum sodium was 138, potassium 3.9, chloride 104, bicarbonate 27, anion gap of 7, BUN 9, creatinine 1.1, estimated GFR was 50 mL per minute. Her glucose was 91, calcium was 8.6. Total bilirubin, AST, ALT, alkaline phosphatase were normal. Her lactate dehydrogenase was 244, and C-reactive protein was 9.7. Total protein 6, albumin 3.3. ASSESSMENT: Relapsing panniculitis and left lower extremity cellulitis. PLAN: My plan is to continue with IV meropenem as well as vancomycin. Continue with pain management. I will discuss the presentation with the Infectious Disease specialist to see if they have any suggestions or ideas. ISABELLE GIL MD DR: DANIELLE/elena JOB#: [id number] / [id number]
--- NOTE | 2019-06-15 18:47 | NUR ---
Pt pleasant throughout shift. Pt does request pain medicine Q4hrs. Pt denies any pain in L Leg but complains of pain in back due to fibromyalgia. Pt ambulates independently and is a standby assist. Pt has been up to restroom as needed. Pt reported BM today. Call light remains in reach, pt instructed to call for any assistance. LLeg continues to be swollen, red and warm to touch. Pt recieves IV antibiotics. Will continue to moniitor and assess as necessary.
[2019-06-15 20:00] VITALS: BP 109/51
[2019-06-15] MEDS: lamoTRIgine 100 MG TABLET. PO SCH (20:31)
[2019-06-15] MEDS: traZODone 150 MG TABLET. PO SCH (20:31)
[2019-06-15] MEDS: MELATONIN 3 MG TABLET PO SCH (20:31)
[2019-06-15 23:00] VITALS: BP 128/65
[2019-06-16] MEDS: LEVOTHYROXINE 88 MCG TABLET PO SCH (05:16)
[2019-06-16] MEDS: oxyCODONE/APAP 5/325 1 TAB TABLET PO PRN ×4 (05:16→20:46)
[2019-06-16] MEDS: MEROPENEM 1 GM in IV NORMAL SALINE 100ML 100 ML IV SCH ×3 (05:16→22:00)
--- NOTE | 2019-06-16 06:20 | NUR ---
PT AMBULATED TO UNIT AND TO ROOM 109 FOR IV ABX , MIDLINE FLUSHED TOLERATED WELL, WITH BLOOD RETURN , IV MED STARTED AND INFUSING PER PUMP. DRESSING TO LEFT HAND CHANGED DENIES PAIN. OFFERED JUICED AND VITAL SIGNS TAKEN. PT SITTING IN CHAIR WAITING FOR INFUSING TO COMPLETE.
--- NOTE | 2019-06-16 06:39 | NUR ---
PT TOLERATED IV ABX , PT AMBULATED OUT OF ROOM AND UNIT TO HOME.
[2019-06-16 06:49] VITALS: BP 129/92
[2019-06-16] MEDS: DULoxetine HCL 60 MG CAPSULE.DR PO SCH ×2 (07:20→20:46)
[2019-06-16] MEDS: VITAMIN B COMPLEX CAPSULE. PO SCH (07:20)
[2019-06-16] MEDS: OMEGA-3 FATTY ACIDS/FISH OIL 1,000 MG CAPSULE. PO SCH ×2 (07:21→20:47)
[2019-06-16] MEDS: MAGNESIUM CHLORIDE ER 64 MG TABLET.ER PO SCH (07:21)
[2019-06-16] MEDS: LACTOBACILLUS RHAMNOSUS GG 1 CAPSULE. PO SCH (07:21)
[2019-06-16] MEDS: CHOLECALCIFEROL (VITAMIN D3) 1,000 UNIT TABLET PO SCH (07:21)
[2019-06-16] MEDS: MEMANTINE 10 MG TABLET. PO SCH ×2 (07:21→20:46)
[2019-06-16] MEDS: tiZANidine 4 MG TABLET. PO SCH ×3 (07:21→20:46)
[2019-06-16] MEDS: busPIRone 15 MG TABLET. PO SCH ×3 (07:21→20:46)
[2019-06-16] MEDS: GABAPENTIN 300 MG CAPSULE. PO SCH ×3 (07:23→20:46)
[2019-06-16] MEDS: FLUTICASONE 50MCG/NASAL SPRAY 16GM BOTTLE. NS SCH (07:27)
[2019-06-16] MEDS: CAPSAICIN 0.025% TOPICAL CREAM 60GM TUBE. TP PRN (07:29)
[2019-06-16] MEDS: BREXPIPRAZOLE PO SCH (07:40)
[2019-06-16] MEDS: cycloSPORINE 0.05% OPTH 1 DROP DROPERETTE OU SCH ×2 (07:46→20:46)
[2019-06-16 08:41] LABS: VANC TR 12.8 mcg/mL (10.0-20.0)
[2019-06-16] MEDS: PRASTERONE 50 MG PO SCH (09:00)
[2019-06-16] MEDS: VANCOMYCIN 1.25 GM in IV NORMAL SALINE 250ML 250 ML IV SCH ×2 (09:04→20:45)
[2019-06-16 10:58] VITALS: BP 102/57
--- NOTE | 2019-06-16 14:14 | PN ---
DATE: SUBJECTIVE: The patient is admitted for recurrence of her left lower extremity cellulitis and left-sided panniculitis. She was treated with multiple courses of oral and IV antibiotics. Unfortunately, despite treatment, the redness and swelling and pain has recurred, so I did admit her again. Luckily, she has a PICC line, so we did start her on IV meropenem as well as vancomycin. SHE IS ALLERGIC TO PENICILLIN, SULFA, CEFUROXIME AND MORPHINE. When I saw her today, her erythema seems to be fading slowly, although the erythema is more in her left side of the abdomen. CT scan of the abdomen and pelvis done with IV contrast yesterday showed that the patient has skin thickening and reticulation of subcutaneous fat along the patient's pannus and extending along the left lateral aspect of the lower abdomen through the pelvis suggesting panniculitis and cellulitis. Recommend correlation with direct inspection, no discrete fluid collection. She has C-collar, Roselia-en-Y gastric bypass without complicating features, mildly prominent left inguinal and left iliac chain lymph nodes, favored reactive given the body wall inflammatory changes. PHYSICAL EXAMINATION: GENERAL: When I saw her today, she was somewhat pale. Not jaundiced, cyanosis or thyromegaly. No jugular venous distention. No lower limb edema. VITAL SIGNS: Her heart rate was 75, blood pressure was 102/57, temperature was 98.5, respiratory rate was 16, and oxygen saturation was 96% on 2 liters of oxygen by nasal cannula. HEAD, EYES, EARS, NOSE AND THROAT: Showed normocephalic, atraumatic. NECK: Supple. HEART: Showed normal first and second heart sounds. No gallop, rub or murmur. CHEST: Clear to auscultation. No crepitation or rhonchi. ABDOMEN: Distended, soft, nontender. No guarding or rigidity. No organomegaly. All hernial orifice intact. Bowel sounds normal. NEUROLOGIC: She is awake, alert, responding appropriately. All cranial nerves intact. She moves extremities without difficulty. She ambulates without difficulty. Examination of the left lower extremity compared to the right showed that she has erythema that is fading. However, the erythema is more prominent in the left side of the abdominal wall and the left inguinal area. Her intake over the last 24 hours was 1780, no output was recorded. LABORATORY DATA: As of yesterday, her white cell count was 5100, hemoglobin 8.9, hematocrit 27.6, MCV 82 and platelet count 324,000. Her chemistry showed a serum sodium 138, potassium 3.9, chloride 104, bicarbonate 27, anion gap of 7, BUN 9, creatinine 1.1, estimated GFR was 50 mL per minute. Her glucose was 91, calcium was 8.6. Total bilirubin, AST, ALT, alkaline phosphatase were normal. Total protein was 6, albumin was 3.3. ASSESSMENT: 1. Left lower extremity cellulitis and left-sided panniculitis. 2. Other medical problems include fibromyalgia, hypertension, hyperlipidemia, hypothyroidism, chronic obstructive pulmonary disease, morbid obesity, obstructive sleep apnea. PLAN: To continue with IV antibiotic in the form of meropenem and vancomycin. I will discuss the presentation with the Infectious Disease specialist to see if may be daptomycin is a better choice that we can use given that there is no abscess or any purulence and that she can be discharged home with home health to continue treatment as an outpatient. ISABELLE GIL MD DR: DANIELLE/elena JOB#: [id number] / [id number]
[2019-06-16 15:34] VITALS: BP 114/54
[2019-06-16 19:00] VITALS: BP 143/80
[2019-06-16] MEDS: lamoTRIgine 100 MG TABLET. PO SCH (20:46)
[2019-06-16] MEDS: LUBIPROSTONE 24 MCG CAPSULE PO SCH ×2 (20:46→20:48)
[2019-06-16] MEDS: MELATONIN 3 MG TABLET PO SCH (20:46)
[2019-06-16] MEDS: traZODone 150 MG TABLET. PO SCH (20:47)
[2019-06-16] MEDS: MISOPROSTOL PO SCH (21:00)
[2019-06-16 22:48] VITALS: BP 110/58
[2019-06-17] MEDS: oxyCODONE/APAP 5/325 1 TAB TABLET PO PRN ×5 (03:25→21:08)
[2019-06-17] MEDS: LEVOTHYROXINE 88 MCG TABLET PO SCH (05:37)
[2019-06-17] MEDS: MEROPENEM 1 GM in IV NORMAL SALINE 100ML 100 ML IV SCH (05:48)
[2019-06-17 06:21] VITALS: BP 154/89
[2019-06-17 06:48] LABS: HEMATOCRIT 27.7 % (36.0-47.0); HEMOGLOBIN 8.8 g/dL (12.0-15.5); RED BLOOD COUNT 3.38 x10^6/uL (3.50-5.40); RED CELL DISTRIBUTION WIDTH 17.2 % (11.5-14.5); WHITE BLOOD COUNT 3.9 x10^3/uL (4.0-11.0)
[2019-06-17 06:57] LABS: ALBUMIN 3.1 g/dL (3.4-5.0); ALBUMIN/GLOBULIN RATIO 0.9 (1.0-1.7); CALCIUM 8.9 mg/dL (8.5-10.1); CREATININE 0.9 mg/dL (0.6-1.0); GFR 63.9; POTASSIUM 3.9 mmol/L (3.5-5.1); TOTAL BILIRUBIN 0.2 mg/dL (0.2-1.0); TOTAL PROTEIN 6.5 g/dL (6.4-8.2)
[2019-06-17] MEDS: CHOLECALCIFEROL (VITAMIN D3) 1,000 UNIT TABLET PO SCH (07:46)
[2019-06-17] MEDS: busPIRone 15 MG TABLET. PO SCH ×3 (07:46→21:07)
[2019-06-17] MEDS: MAGNESIUM CHLORIDE ER 64 MG TABLET.ER PO SCH (07:46)
[2019-06-17] MEDS: GABAPENTIN 300 MG CAPSULE. PO SCH ×3 (07:47→21:07)
[2019-06-17] MEDS: MEMANTINE 10 MG TABLET. PO SCH ×2 (07:47→21:06)
[2019-06-17] MEDS: OMEGA-3 FATTY ACIDS/FISH OIL 1,000 MG CAPSULE. PO SCH ×2 (07:47→21:06)
[2019-06-17] MEDS: LACTOBACILLUS RHAMNOSUS GG 1 CAPSULE. PO SCH (07:47)
[2019-06-17] MEDS: DULoxetine HCL 60 MG CAPSULE.DR PO SCH ×2 (07:47→21:07)
[2019-06-17] MEDS: tiZANidine 4 MG TABLET. PO SCH ×3 (07:47→21:06)
[2019-06-17] MEDS: cycloSPORINE 0.05% OPTH 1 DROP DROPERETTE OU SCH ×2 (07:47→21:08)
[2019-06-17] MEDS: VANCOMYCIN 1.25 GM in IV NORMAL SALINE 250ML 250 ML IV SCH (07:52)
[2019-06-17] MEDS: LUBIPROSTONE 24 MCG CAPSULE PO SCH ×2 (07:53→21:00)
[2019-06-17] MEDS: BREXPIPRAZOLE PO SCH (07:53)
[2019-06-17] MEDS: FLUTICASONE 50MCG/NASAL SPRAY 16GM BOTTLE. NS SCH (07:55)
[2019-06-17] MEDS: MISOPROSTOL PO SCH ×2 (07:57→21:00)
[2019-06-17] MEDS: PRASTERONE 50 MG PO SCH (07:57)
[2019-06-17] MEDS: VITAMIN B COMPLEX CAPSULE. PO SCH (09:00)
[2019-06-17 10:37] VITALS: BP 106/66
[2019-06-17] MEDS ORDERED: ENOXAPARIN 40 MG/0.4 ML SYRINGE. SQ SCH (11:00)
[2019-06-17] MEDS ORDERED: NORMAL SALINE IV ONE (12:00)
[2019-06-17] MEDS ORDERED: DAPTOMYCIN IV ONE (12:00)
--- NOTE | 2019-06-17 12:22 | PN ---
DATE: 06/17/2019 SUBJECTIVE: The patient continued to have redness involving all her left lower extremity up to the left side of her abdominal wall. Other than her chronic back pain, she denied any other complaints, in particular, no fevers, chills or rigors. PHYSICAL EXAMINATION: GENERAL: When I examined her today, she looked well and was clearly in no apparent respiratory distress; pale, but no jaundice, cyanosis or thyromegaly. No jugular venous distention. No lower limb edema. VITAL SIGNS: Her heart rate was 78, blood pressure was 106/66, temperature was 99.1, respiratory rate was 18 and oxygen saturation was 95%. HEAD, EYES, EARS, NOSE AND THROAT: Showed normocephalic, atraumatic. NECK: Supple. HEART: Showed normal first and second heart sounds. No gallop or murmur. CHEST: Clear to auscultation. No crepitation or rhonchi. ABDOMEN: Distended, soft, nontender. NEUROLOGIC: She is awake, alert, responding appropriately. All cranial nerves intact. She moves extremities without difficulty. She ambulates with a cane. The left lower extremity redness and swelling extends all the way to the left side of the abdominal wall, below the umbilicus. Her intake over the last 24 hours was 1615, no output was recorded. LABORATORY DATA: Her lab work this morning showed a white cell count 3900, hemoglobin 8.8, hematocrit 27, MCV 82 and platelet count 310,000. Her chemistry showed a serum sodium of 139, potassium 3.9, chloride 104, bicarbonate 29, anion gap of 6, BUN 7, creatinine 0.9, estimated GFR was 64 mL per minute. Her glucose was 85, calcium was 8.9. Total bilirubin, AST, ALT, alkaline phosphatase were normal. Total protein was 6.5, albumin was 3.1. ASSESSMENT: 1. Recurrent left lower extremity cellulitis extending all the way to the left-sided abdominal wall. 2. The patient has multiple other medical problems including: A. Fibromyalgia. B. Hypertension. C. Hyperlipidemia. D. Hypothyroidism. E. Chronic obstructive pulmonary disease. F. Morbid obesity, obstructive sleep apnea. I did speak with the Infectious Disease specialist. PLAN: To switch her to daptomycin for perhaps today and tomorrow. If she made improvement, we can discharge her home on oral Zyvox. ISABELLE GIL MD DR: DANIELLE/elena JOB#: [id number] / [id number]
[2019-06-17] MEDS: ENOXAPARIN ** NOTE DOSE ** SYRINGE SQ SCH ×2 (12:31→21:08)
[2019-06-17 14:58] VITALS: BP 115/71
[2019-06-17 19:20] VITALS: BP 155/90
[2019-06-17] MEDS: traZODone 150 MG TABLET. PO SCH (21:06)
[2019-06-17] MEDS: MELATONIN 3 MG TABLET PO SCH (21:06)
[2019-06-17] MEDS: lamoTRIgine 100 MG TABLET. PO SCH (21:07)
[2019-06-18] MEDS: oxyCODONE/APAP 5/325 1 TAB TABLET PO PRN ×6 (01:08→21:04)
[2019-06-18] MEDS: LEVOTHYROXINE 88 MCG TABLET PO SCH (05:01)
[2019-06-18 05:16] VITALS: BP 128/84
[2019-06-18] MEDS: FLUTICASONE 50MCG/NASAL SPRAY 16GM BOTTLE. NS SCH (08:49)
[2019-06-18] MEDS: OMEGA-3 FATTY ACIDS/FISH OIL 1,000 MG CAPSULE. PO SCH ×2 (08:50→21:03)
[2019-06-18] MEDS: ENOXAPARIN ** NOTE DOSE ** SYRINGE SQ SCH ×2 (08:50→21:02)
[2019-06-18] MEDS: GABAPENTIN 300 MG CAPSULE. PO SCH ×3 (08:50→21:03)
[2019-06-18] MEDS: tiZANidine 4 MG TABLET. PO SCH ×3 (08:50→21:03)
[2019-06-18] MEDS: MAGNESIUM CHLORIDE ER 64 MG TABLET.ER PO SCH (08:50)
[2019-06-18] MEDS: LACTOBACILLUS RHAMNOSUS GG 1 CAPSULE. PO SCH (08:50)
[2019-06-18] MEDS: DULoxetine HCL 60 MG CAPSULE.DR PO SCH ×2 (08:51→21:03)
[2019-06-18] MEDS: MEMANTINE 10 MG TABLET. PO SCH ×2 (08:51→21:04)
[2019-06-18] MEDS: busPIRone 15 MG TABLET. PO SCH ×3 (08:51→21:03)
[2019-06-18] MEDS: CHOLECALCIFEROL (VITAMIN D3) 1,000 UNIT TABLET PO SCH (08:51)
[2019-06-18] MEDS: BREXPIPRAZOLE PO SCH (08:51)
[2019-06-18] MEDS: cycloSPORINE 0.05% OPTH 1 DROP DROPERETTE OU SCH ×2 (08:52→21:04)
[2019-06-18] MEDS: LUBIPROSTONE 24 MCG CAPSULE PO SCH ×3 (08:52→21:00)
[2019-06-18] MEDS: MISOPROSTOL PO SCH ×2 (09:00→21:00)
[2019-06-18] MEDS: PRASTERONE 50 MG PO SCH (09:00)
[2019-06-18] MEDS: VITAMIN B COMPLEX CAPSULE. PO SCH (09:00)
--- NOTE | 2019-06-18 12:07 | PN ---
DATE: 06/18/2019 SUBJECTIVE: The patient is resting, slightly propped up in bed, in no apparent distress. Her main complaint is that her pain is not well controlled, but the redness and swelling of her lower extremity and anterior abdominal wall on the left side has largely subsided after we switched her to daptomycin. PHYSICAL EXAMINATION: GENERAL: When I examined her this morning, she looked pale. No jaundice, cyanosis or thyromegaly. No jugular venous distension. No limb edema. VITAL SIGNS: Her heart rate was 74, blood pressure was 128/84, temperature 98, respiratory rate was 18 and oxygen saturation was 97% on 2 liters of oxygen. Her left lower extremity compared to the right, is much less red and swollen. ABDOMEN: The erythema of the left anterior abdominal wall also is resolving and fading away. Her intake was ____, no output recorded. LABORATORY DATA: Her lab work as of yesterday showed a BUN of 7, creatinine 0.9, hemoglobin 8.8, hematocrit 28 with normal white cell count and platelets. ASSESSMENT: 1. Left lower extremity cellulitis and panniculitis of the left side abdominal wall, resolving. 2. Acute kidney injury, improving. 3. Fibromyalgia. 4. Hypertension, well controlled. 5. Hyperlipidemia. 6. Hypothyroidism. 7. Chronic obstructive pulmonary disease. 8. Morbid obesity. 9. Obstructive sleep apnea. PLAN: To continue with IV daptomycin. I will check her labs again tomorrow including CK and we will decide on further management according to the finding as well as whether insurance will allow us to send her home with IV daptomycin. ISABELLE GIL MD DR: DANIELLE/elena JOB#: [id number] / [id number]
[2019-06-18] MEDS ORDERED: DAPTOMYCIN IV ONE (14:45)
[2019-06-18] MEDS ORDERED: NORMAL SALINE IV ONE (14:45)
[2019-06-18 16:12] VITALS: BP 164/92
--- NOTE | 2019-06-18 17:26 | NUR ---
Pt alert, oriented throughout shift. Prefers pain meds given q4h to control chronic back pain. Cellulitis in LLE has receded well below demarcations, and pt reports less pain in LLE.
[2019-06-18 20:14] VITALS: BP 148/92
[2019-06-18] MEDS: MELATONIN 3 MG TABLET PO SCH (21:03)
[2019-06-18] MEDS: traZODone 150 MG TABLET. PO SCH (21:03)
[2019-06-18] MEDS: lamoTRIgine 100 MG TABLET. PO SCH (21:04)
[2019-06-19] MEDS: oxyCODONE/APAP 5/325 1 TAB TABLET PO PRN ×5 (01:00→16:49)
[2019-06-19] MEDS: LEVOTHYROXINE 88 MCG TABLET PO SCH (05:04)
[2019-06-19 05:58] VITALS: BP 151/82
[2019-06-19 06:24] LABS: HEMATOCRIT 28.2 % (36.0-47.0); HEMOGLOBIN 8.9 g/dL (12.0-15.5); RED BLOOD COUNT 3.44 x10^6/uL (3.50-5.40); RED CELL DISTRIBUTION WIDTH 17.2 % (11.5-14.5); WHITE BLOOD COUNT 4.6 x10^3/uL (4.0-11.0)
[2019-06-19 06:28] LABS: ALBUMIN 3.1 g/dL (3.4-5.0); ALBUMIN/GLOBULIN RATIO 0.9 (1.0-1.7); CALCIUM 9.1 mg/dL (8.5-10.1); CREATININE 0.8 mg/dL (0.6-1.0); GFR 73.2; POTASSIUM 3.9 mmol/L (3.5-5.1); TOTAL BILIRUBIN 0.2 mg/dL (0.2-1.0); TOTAL PROTEIN 6.5 g/dL (6.4-8.2)
[2019-06-19] MEDS: MISOPROSTOL PO SCH (08:41)
[2019-06-19] MEDS: PRASTERONE 50 MG PO SCH (08:42)
[2019-06-19] MEDS: VITAMIN B COMPLEX CAPSULE. PO SCH (08:42)
[2019-06-19] MEDS: cycloSPORINE 0.05% OPTH 1 DROP DROPERETTE OU SCH (08:54)
[2019-06-19] MEDS: FLUTICASONE 50MCG/NASAL SPRAY 16GM BOTTLE. NS SCH (08:54)
[2019-06-19] MEDS: BREXPIPRAZOLE PO SCH (08:55)
[2019-06-19] MEDS: OMEGA-3 FATTY ACIDS/FISH OIL 1,000 MG CAPSULE. PO SCH (08:55)
[2019-06-19] MEDS: LUBIPROSTONE 24 MCG CAPSULE PO SCH (08:55)
[2019-06-19] MEDS: CHOLECALCIFEROL (VITAMIN D3) 1,000 UNIT TABLET PO SCH (08:55)
[2019-06-19] MEDS: DULoxetine HCL 60 MG CAPSULE.DR PO SCH (08:56)
[2019-06-19] MEDS: GABAPENTIN 300 MG CAPSULE. PO SCH ×2 (08:56→14:24)
[2019-06-19] MEDS: busPIRone 15 MG TABLET. PO SCH ×2 (08:56→14:24)
[2019-06-19] MEDS: tiZANidine 4 MG TABLET. PO SCH ×2 (08:56→14:24)
[2019-06-19] MEDS: MAGNESIUM CHLORIDE ER 64 MG TABLET.ER PO SCH (08:56)
[2019-06-19] MEDS: LACTOBACILLUS RHAMNOSUS GG 1 CAPSULE. PO SCH (08:56)
[2019-06-19] MEDS: MEMANTINE 10 MG TABLET. PO SCH (08:56)
[2019-06-19] MEDS: ENOXAPARIN ** NOTE DOSE ** SYRINGE SQ SCH (10:23)
[2019-06-19 12:16] VITALS: BP 124/80
[2019-06-19] MEDS ORDERED: DAPT500V7 IV (14:03)
--- NOTE | 2019-06-19 14:06 | DISCH ---
HOME HEALTH DISCHARGE/MEDS DISCHARGE INFORMATION: Discharge Date: Jun 19, 2019 Final Diagnosis: LL E Cellulitis Acute kisney injury HTN MORBID OBESITY/ SUNITA Condition on Discharge: Stable CODE STATUS: Code Status: Full HOME HEALTH: Face to Face: I certify this patient is under my care and that I, or a nurse practitioner or physician's assistant media planner working with me, had a face to face encounter that meets the physician face to face encounter requirements with this patient on 06/19/19 Medical Condition(s): Other Longterm For: Admin/Educate Injections Physical Therapy For: Evalulation/Treatment Occupational Therapy For: Evaluation/Treatment Homebound Status Met By: Unsteady balance w/ amb, POST DISCHARGE ORDERS: Activity Instructions for Disc: Resume previous activity DIET AFTER DISCHARGE: Cardiac CERTIFICATION STATEMENT: Certification Statement: Based on the above finding, I certify that this patient is confined to the home and needs intermittent [facility] care, physical therapy and/or speech therapy, or continues to need occupational therapy.~ This patient is under my care, and I have initiated the establishment of the plan of care.~ This patient will be followed by myself or a community physician who will periodically review the plan of care. DISCHARGE MEDICATIONS: Home Meds Active Scripts Daptomycin (CUBICIN) 500 Mg Vial, 850 MG IV DAILY for cellulitis for 10 Days, #17 EACH Prov:ISABELLE GIL MD 06/19/19 Reported Medications Tizanidine Hcl (TIZANIDINE HCL) 4 Mg Tablet, 4 MG PO TID for . LAST DOSE GIVEN: DATE: TIME: AFTERNOON NEXT DOSE DUE: DATE: TODAY TIME: PM 06/03/19 Brexpiprazole (Rexulti) 3 Mg Tablet, 1 TAB PO DAILY for . for 30 Days, 0 Refills NOT TAKEN THIS ADMISSION, TAKE PRESCRIBED AT HOME. 06/03/19 Lamotrigine (LAMOTRIGINE) 100 Mg Tab.er.24, 100 MG PO QHS for . LAST DOSE GIVEN: DATE: YESTERDAY TIME: BEDTIME NEXT DOSE DUE: DATE: TODAY TIME: BEDTIME 06/03/19 Fluticasone Propionate (FLUTICASONE PROPIONATE NASAL SPRAY) 16 Gm [place].susp, 2 SPRAY NS DAILY for . LAST DOSE GIVEN: DATE: TODAY TIME: AM NEXT DOSE DUE: DATE: TOMORROW TIME: AM 06/03/19 Capsaicin (CAPSAICIN) 42.5 Gm Cream..g., 1 CHASE TP PRN 3-4XDAILY PRN for . NOT TAKEN TODAY, TAKE NEEDED AT HOME. 06/03/19 Buspirone Hcl (BUSPIRONE HCL) 15 Mg Tablet, 15 MG PO TID for anxiety LAST DOSE GIVEN: DATE: TODAY TIME: NOON NEXT DOSE DUE: DATE: TODAY TIME: PM 06/03/19 Biotin (Biotin) 1,000 Mcg Tab.chew, 500 MCG PO DAILY for . NOT TAKEN THIS ADMISSION, TAKE PRESCRIBED AT HOME. 06/03/19 Lubiprostone (AMITIZA) 24 Mcg Capsule, 1 CAP PO BID for . for 30 Days, 0 Refills LAST DOSE GIVEN: DATE: TODAY TIME: AM NEXT DOSE DUE: DATE: TODAY TIME: PM 06/03/19 Duloxetine Hcl (DULOXETINE HCL) 60 Mg Capsule.dr, 1 CAP PO BID for depression LAST DOSE GIVEN: DATE: TIME: AM NEXT DOSE DUE: DATE: TODAY TIME: PM 06/03/19 Trazodone Hcl (TRAZODONE HCL) 150 Mg Tablet, 1 TAB PO QHS for insomnia LAST DOSE GIVEN: DATE: YESTERDAY TIME: BEDTIME NEXT DOSE DUE: DATE: TODAY TIME: BEDTIME 06/03/19 Levothyroxine Sodium (LEVOTHYROXINE SODIUM) 88 Mcg Tablet, 1 TAB PO DAILY06 for thyroid LAST DOSE GIVEN: DATE: TODAY TIME: BEFORE BREAKFAST NEXT DOSE DUE: DATE: TOMORROW TIME: BEFORE BREAKFAST 06/03/19 Lisinopril (LISINOPRIL) 40 Mg Tablet, 1 TAB PO DAILY for bp LAST DOSE GIVEN: DATE: TODAY TIME: AM NEXT DOSE DUE: DATE: TOMORROW TIME: AM 06/03/19 Furosemide (FUROSEMIDE) 20 Mg Tablet, 1 TAB PO BID92 for . LAST DOSE GIVEN: DATE: TODAY TIME: AFTERNOON NEXT DOSE DUE: DATE: TOMORROW TIME: AM 06/03/19 Memantine HCl (Memantine HCl ER) 28 Mg Cap.spr.24, 1 CAP PO DAILY for memory LAST DOSE GIVEN: DATE: TODAY TIME: AM NEXT DOSE DUE: DATE: TOMORROW TIME: AM 06/03/19 Cyclosporine (RESTASIS) 1 Each [place], 1 DROP EACHEYE BID for . LAST DOSE GIVEN: DATE: TODAY TIME: AM NEXT DOSE DUE: DATE: TODAY TIME: PM 06/03/19 Diclofenac Sodium (DICLOFENAC SODIUM) 75 Mg Tablet.dr, 1 TAB PO BID for . LAST DOSE GIVEN: DATE: TODAY TIME: AM NEXT DOSE DUE: DATE: TODAY TIME: PM 06/03/19 Misoprostol (MISOPROSTOL) 200 Mcg Tablet, 1 TAB PO BID for bp LAST DOSE GIVEN: DATE: TODAY TIME: AM NEXT DOSE DUE: DATE: TODAY TIME: PM 06/03/19 Oxycodone Hcl/Acetaminophen (OXYCODONE-ACETAMINOPHEN 10-325) 1 Each Tablet, 1 TAB PO TID for pain LAST TAKEN AT 3:50PM 06/03/19 Hydroxyzine Pamoate (HYDROXYZINE PAMOATE) 25 Mg Capsule, 50 MG PO QID PRN for PAIN NOT TAKEN TODAY, TAKE NEEDED AT HOME. 10/04/13 Prasterone (Dhea) (DHEA) 50 Mg Capsule, 50 MG PO DAILY for SUPPLEMENT NOT TAKEN THIS ADMISSION, TAKE PRESCRIBED AT HOME 05/16/13 Melatonin (MELATONIN) 3 Mg Tablet, 3 MG PO HS for INSOMNIA NOT TAKEN THIS ADMISSION, TAKE PRESCRIBED AT HOME. 05/16/13 Vitamin B Complex (B COMPLEX) 1 Each Tablet.er, 1 EACH PO DAILY for SUPPLEMENT NOT TAKEN THIS ADMISSION, TAKE PRESCRIBED AT HOME. 05/16/13 Discontinued Scripts Ceftriaxone Na/Dextrose,Iso (CEFTRIAXONE 2 GM-D5W BAG) 2 Gm/50 Ml Piggyback, 2 GM IV DAILY] for CELLULITIS for 7 Days, EACH Prov:ISABELLE GIL MD 06/06/19 ISABELLE GIL MD Jun 19, 2019 14:06
--- NOTE | 2019-06-19 14:45 | DS ---
DATE OF DISCHARGE: 06/19/2019 HOSPITAL COURSE: The patient is a 59-year-old female patient who has been in and out of the hospital on numerous occasions for left lower extremity cellulitis. She was treated with different multiple antibiotics including IV vancomycin and meropenem. She was also on oral doxycycline, Bactrim and clindamycin. Unfortunately, every time her rash recurs back, involving the whole left lower extremity from left foot to the left groin area and extending proximally to the left side of the anterior abdominal wall; and therefore, a decision was made to switch her to daptomycin and she did receive her first dose yesterday and her rash has largely subsided and therefore, a decision was made to discharge her home with home health to continue IV daptomycin as an outpatient for 10 more days. We will obviously monitor her CK to make sure she does not have any rhabdomyolysis. PHYSICAL EXAMINATION: GENERAL: When I saw her today, she looked well and was clearly in no apparent respiratory distress. She was pale, but no jaundice, cyanosis or thyromegaly. No jugular venous distention. No limb edema. VITAL SIGNS: Her heart rate was 79, blood pressure was 124/80, temperature was 98.1, respiratory rate 20, and oxygen saturation was 96% on room air. HEAD, EYES, EARS, NOSE AND THROAT: Showed normocephalic, atraumatic. NECK: Supple. HEART: Showed normal first and second heart sounds. No gallop, rub or murmur. CHEST: Clear to auscultation. No crepitation or rhonchi. ABDOMEN: Distended, soft, nontender. No guarding or rigidity. No organomegaly. All hernial orifice intact. Bowel sounds normal. NEUROLOGIC: She is awake, alert, responding appropriately. All cranial nerves intact. She moves extremities without difficulty, all the redness and swelling of the left side of the abdominal wall and the left lower extremity has largely subsided. She has tiny minute petechiae visible on both sides, both lower extremities in the face of normal platelet count. Her intake over the last 24 hours was 1460. No output was recorded. LABORATORY DATA: This morning showed a white cell count is 4600, hemoglobin 9, hematocrit 28, MCV 82 and platelet count of 322,000. Her chemistry this morning showed a serum sodium 142, potassium 3.9, chloride 104, bicarbonate 31, anion gap of 7, BUN 10, creatinine 0.8, estimated GFR was 73 mL per minute. Her glucose 95. Her serum creatinine was 0.8, estimated GFR was 73 mL per minute. Her glucose was 95, calcium was 9.1. Her total bilirubin, AST, ALT, alkaline phosphatase were normal. CK was only 131. Total protein was 6.5, albumin was 3.1. DISCHARGE MEDICATIONS: She will be discharged home to continue on daptomycin 850 mg IV daily for 10 more days. Continue with Biotin 500 mcg p.o. daily, Rexulti 3 mg daily, buspirone 15 mg 3 times a day, capsaicin cream applied topically 3-4 times daily, cyclosporine for Restasis 1 drop to both eyes twice a day, diclofenac sodium 75 mg twice a day, duloxetine 60 mg twice a day, fluticasone propionate for Flonase 1 spray to each nostril twice a day, furosemide 20 mg twice a day, hydroxyzine pamoate 50 mg 4 times a day, lamotrigine 100 mg at bedtime, levothyroxine sodium 88 mcg once a day, lisinopril 40 mg once a day, Amitiza 24 mcg twice a day, melatonin 3 mg at bedtime, Namenda 28 mg once a day. Misoprostol 200 mcg twice a day, oxycodone 10 mg 3 times a day, Prasterone 50 mg once a day, tizanidine 4 mg 3 times a day, trazodone 150 mg at bedtime, vitamin B complex 1 capsule once a day. FINAL DISCHARGE DIAGNOSES: 1. Left-sided panniculitis as well as left lower extremity cellulitis, resolving. 2. Acute kidney injury, improving. 3. Fibromyalgia. 4. Hypertension, well controlled. 5. Hyperlipidemia. 6. Hypothyroidism. 7. Chronic obstructive pulmonary disease. 8. Morbid obesity. 9. Obstructive sleep apnea. ISABELLE GIL MD DR: DANIELLE/elena JOB#: [id number] / [id number]
[2019-06-19] MEDS ORDERED: DAPTOMYCIN IV SCH (15:00)
[2019-06-19] MEDS ORDERED: NORMAL SALINE IV SCH (15:00)
--- NOTE | 2019-06-19 17:37 | NUR ---
Pt discharged home. Pt escorted to car in wheelchair. VSS. NAD. Discharge instructions and materials reviewed with patient. Questions answered. Midline to remain in place per MD for home health ABX. All belongings accounted for. No falls or injury reported.
== END 2019-06-19 17:39 | disposition home health service (06) | DRG 606 ==
LOC: LND 15:46 → 1 SOUTH 06-15 18:10
PROVIDERS: ADMIT Internal Medicine; ATTEND Internal Medicine
DX: M79.3 Panniculitis, unspecified (principal); N17.0 Acute kidney failure with tubular necrosis; L03.116 Cellulitis of left lower limb; Z68.44 Body mass index [BMI] 60.0-69.9, adult; E03.9 Hypothyroidism, unspecified; E66.01 Morbid (severe) obesity due to excess calories; E78.5 Hyperlipidemia, unspecified; G47.33 Obstructive sleep apnea (adult) (pediatric); I10 Essential (primary) hypertension; J44.9 Chronic obstructive pulmonary disease, unspecified; M79.7 Fibromyalgia; Z80.49 Family history of malignant neoplasm of other genital organs; Z87.891 Personal history of nicotine dependence; Z88.0 Allergy status to penicillin; Z88.2 Allergy status to sulfonamides; Z90.710 Acquired absence of both cervix and uterus; Z98.84 Bariatric surgery status; Z88.8 Allergy status to other drugs, medicaments and biological substances; Z79.899 Other long term (current) drug therapy; Z90.722 Acquired absence of ovaries, bilateral; Z82.61 Family history of arthritis; Z81.8 Family history of other mental and behavioral disorders
CPT/HCPCS: 36415; 74177; 80053; 80202; 82550; 83615; 85025; 85027; 85651; 86140; 87040; J0878; J1650; J2185; J3370; J7040; J7050; Q9967; 97110; 97116; 97535

== ENCOUNTER 2019-08-26 14:35 | Inpatient (IN) | payer OTHER, MEDICAID ==
[~2019-08-26] VITALS: Ht 154.9 cm; Wt 134.5 kg
[~2019-08-26 14:35] MED LIST changes: +DAPT500V7 IV
[2019-08-26] MEDS ORDERED: DAPTOMYCIN IV STA (15:15)
[2019-08-26] MEDS ORDERED: NORMAL SALINE IV STA (15:15)
--- NOTE | 2019-08-26 15:21 | PHYS DOC ---
Past History Past Medical History: CHF, COPD, Fibromyalgia, Hypertension Past Surgical History: No Surgical History Smoking: Non-smoker Alcohol Use: None Drug Use: None General Adult EDM: Chief Complaint: Cellulitis HPI: HPI: 59-year-old female presents with left lower leg cellulitis. She was seen by her primary care physician who attempted to set up IV daptomycin yesterday, on Wednesday. The insurance company did not approve her injections as an outpatient or for home health. Her primary physician does not want her to wait an additional 3 days before she gets a dose. The patient had cellulitis that started like this a couple of months ago and became very ill. She did fully recover between that episode and this 1. She was given 850 mg of daptomycin daily at that time and it was effective. She has no other complaints at this time. Denies fever. Review of Systems: Review of Systems: Constitutional: Denies fever or chills Eyes: Denies change in visual acuity HENT: Denies nasal congestion or sore throat Respiratory: Denies cough or shortness of breath Cardiovascular: Denies chest pain or edema GI: Denies abdominal pain, nausea, vomiting, bloody stools or diarrhea : Denies dysuria Musculoskeletal: Denies back pain or joint pain Integument: Cellulitis left lower leg Neurologic: Denies headache, focal weakness or sensory changes Endocrine: Denies polyuria or polydipsia Lymphatic: Denies swollen glands Psychiatric: Denies depression or anxiety Heart Score: Risk Factors: Risk Factors: DM, Current or recent (<one month) smoker, HTN, HLP, family history of CAD, obesity. Risk Scores: Score 0 - 3: 2.5% MACE over next 6 weeks - Discharge Home Score 4 - 6: 20.3% MACE over next 6 weeks - Admit for Clinical Observation Score 7 - 10: 72.7% MACE over next 6 weeks - Early Invasive Strategies Allergies: Allergies: Allergies Coded Allergies Type Severity Reaction Last Updated Verified Penicillins Allergy Intermediate Rash 06/04/19 Yes cefuroxime axetil Allergy Intermediate Rash 06/06/19 Yes Sulfa (Sulfonamide Antibiotics) Allergy Unknown 05/16/13 Yes morphine Allergy Unknown 06/15/13 Yes Physical Exam: PE: Constitutional: Well developed, well nourished, no acute distress, non-toxic josé luis earance. [] HENT: Normocephalic, atraumatic, bilateral external ears normal, oropharynx moist, no oral exudates, nose normal. [] Eyes: PERRLA, EOMI, conjunctiva normal, no discharge. [] Neck: Normal range of motion, no tenderness, supple, no stridor. [] Cardiovascular:Heart rate regular rhythm, no murmur [] Lungs & Thorax: Bilateral breath sounds clear to auscultation [] Abdomen: Bowel sounds normal, soft, no tenderness, no masses, no pulsatile masses. [] Skin: 10 cm x 10 cm hot, erythematous area of the left lower leg consistent with cellulitis [] Back: No tenderness, no CVA tenderness. [] Extremities: No tenderness, no cyanosis, no clubbing, ROM intact, no edema. [] Neurologic: Alert and oriented X 3, normal motor function, normal sensory function, no focal deficits noted. [] Psychologic: Affect normal, judgement normal, mood normal. [] EKG: EKG: [] Radiology/Procedures: Radiology/Procedures: [] Course & Med Decision Making: Course & Med Decision Making Pertinent Labs and Imaging studies reviewed. (See chart for details) I personally spoke with the patient's primary physician yesterday when we attempted to get this set up as outpatient. I looked at her chart and the prescription from her doctor's for 850 mg daily. This is a bit higher than standard weight-based dosing, but within reason. I will administer this dose. This is the same dose she got with her previous treatment in June. The patient's labs are significant for a lactic acid of 2.5 and a creatinine of 1.4. We will give the patient a liter normal saline. I believe is prudent to admit this patient to get her going on her cellulitis treatment and follow-up to make sure that her labs normalized. I spoke with Dr. Nesbitt and he has accepted the patient for admission. The patient is in agreement with this plan. [] Dragon Disclaimer: Edgar Disclaimer: This electronic medical record was generated, in whole or in part, using a voice recognition dictation system. Departure Departure: Impression: Primary Impression: Cellulitis of left lower extremity Disposition: ADMITTED INPATIENT Admitting Physician: Dustin Nesbitt Condition: STABLE Referrals: ROCHELLE OLEARY (PCP) Patient Instructions: Cellulitis, [id number] Justification of Admission: Justification of Admission: Justification of Admission Dx: Yes Cellulitis: Cellulitis ELEANOR MANRIQUEZ DO Aug 26, 2019 15:21
[2019-08-26 15:30] LABS: BASO # 0.1 x10^3/uL (0.0-0.2); BASO % 1 % (0-3); EOS # 0.2 x10^3/uL (0.0-0.7); EOS % 3 % (0-3); HEMATOCRIT 28.9 % (36.0-47.0); HEMOGLOBIN 9.1 g/dL (12.0-15.5); LYMPH % 30 % (24-48); MEAN CORPUSCULAR HEMOGLOBIN 25 pg (25-35); MEAN CORPUSCULAR HGB CONC 32 g/dL (31-37); MEAN CORPUSCULAR VOLUME 78 fL (79-100); MONO # 0.7 x10^3/uL (0.0-1.1); MONO % 11 % (0-9); NEUT # 3.6 x10^3uL (1.8-7.7); NEUT % 55 % (31-73); PLATELET COUNT 206 x10^3/uL (140-400); RED CELL DISTRIBUTION WIDTH 18.7 % (11.5-14.5); WHITE BLOOD COUNT 6.6 x10^3/uL (4.0-11.0)
[2019-08-26 15:38] LABS: CREATININE 1.4 mg/dL (0.6-1.0); GFR 38.4; POTASSIUM 4.4 mmol/L (3.5-5.1)
[2019-08-26 15:44] LABS: ALBUMIN 3.3 g/dL (3.4-5.0); ALBUMIN/GLOBULIN RATIO 0.9 (1.0-1.7); TOTAL BILIRUBIN 0.2 mg/dL (0.2-1.0)
[2019-08-26] MEDS ORDERED: IV NORMAL SALINE 1,000ML 1,000 ML IV ONE (16:30)
[2019-08-26 18:28] VITALS: BP 143/84
--- NOTE | 2019-08-26 20:10 | NUR ---
The patient, ROSEANNE VERDUZCO, 59 y/o, F admitted by ISABELLE GIL MD, was given written information regarding hospital policies, unit procedures and contact persons. Past medical history and current home medications were reviewed with patient. Bed locked and in lowest position, call light within reach. Valuables were checked and left in room.
[2019-08-26] MEDS ORDERED: OXYC-314 PO (20:24)
[2019-08-26] MEDS: DICLOFENAC SODIUM 25 MG TABLET.DR PO SCH (21:00)
[2019-08-26] MEDS ORDERED: CAPSAICIN 0.025% TOPICAL CREAM 60GM TUBE. TP PRN (21:00)
[2019-08-26] MEDS: MISOPROSTOL PO SCH (21:00)
[2019-08-26] MEDS: busPIRone 15 MG TABLET. PO SCH (21:12)
[2019-08-26] MEDS: tiZANidine 4 MG TABLET. PO SCH (21:12)
[2019-08-26] MEDS: lamoTRIgine 100 MG TABLET. PO SCH (21:13)
[2019-08-26] MEDS: MELATONIN 3 MG TABLET PO SCH (21:13)
[2019-08-26] MEDS: MEMANTINE 10 MG TABLET. PO SCH (21:13)
[2019-08-26] MEDS: GABAPENTIN 300 MG CAPSULE. PO SCH (21:14)
[2019-08-26] MEDS: cycloSPORINE 0.05% OPTH 1 DROP DROPERETTE OU SCH (21:14)
[2019-08-26] MEDS: DULoxetine HCL 60 MG CAPSULE.DR PO SCH (21:14)
[2019-08-26] MEDS: HYDROcodone/APAP 5/325MG 1 TAB TABLET PO PRN (21:14)
[2019-08-26] MEDS: traZODone 150 MG TABLET. PO SCH (22:32)
[2019-08-26 22:40] VITALS: BP 99/65
[2019-08-27] MEDS: HYDROcodone/APAP 5/325MG 1 TAB TABLET PO PRN ×6 (00:54→22:11)
[2019-08-27] MEDS: LEVOTHYROXINE 88 MCG TABLET PO SCH (05:05)
[2019-08-27 05:38] VITALS: BP 149/85
[2019-08-27] MEDS: busPIRone 15 MG TABLET. PO SCH ×3 (08:03→22:12)
[2019-08-27] MEDS: FUROSEMIDE 20 MG TABLET PO SCH ×2 (08:03→13:35)
[2019-08-27] MEDS: ASPIRIN ENTERIC COATED 81 MG TABLET.DR. PO SCH (08:03)
[2019-08-27] MEDS: MEMANTINE 10 MG TABLET. PO SCH ×2 (08:03→22:11)
[2019-08-27] MEDS: DULoxetine HCL 60 MG CAPSULE.DR PO SCH ×2 (08:04→22:11)
[2019-08-27] MEDS: tiZANidine 4 MG TABLET. PO SCH ×3 (08:04→22:12)
[2019-08-27] MEDS: VITAMIN B COMPLEX CAPSULE. PO SCH (08:04)
[2019-08-27] MEDS: DICLOFENAC SODIUM 25 MG TABLET.DR PO SCH ×2 (08:04→22:13)
[2019-08-27] MEDS: LISINOPRIL 20 MG TABLET PO SCH (08:04)
[2019-08-27] MEDS: GABAPENTIN 300 MG CAPSULE. PO SCH ×3 (08:04→22:12)
[2019-08-27] MEDS: FLUTICASONE 50MCG/NASAL SPRAY 16GM BOTTLE. NS SCH (08:04)
[2019-08-27] MEDS: MISOPROSTOL PO SCH ×2 (08:05→21:00)
[2019-08-27] MEDS: PRASTERONE 50 MG PO SCH (08:06)
[2019-08-27] MEDS: cycloSPORINE 0.05% OPTH 1 DROP DROPERETTE OU SCH ×2 (09:00→22:10)
[2019-08-27] MEDS ORDERED: DAPTOmycin 500 MG VIAL IV SCH (09:00)
[2019-08-27] MEDS ORDERED: BIOTIN 500 MCG PO SCH (09:00)
[2019-08-27 10:55] VITALS: BP 108/68
--- NOTE | 2019-08-27 13:25 | HP ---
ADMIT DATE: 08/26/2019 HISTORY OF PRESENT ILLNESS: The patient is a 59-year-old female patient who presented to her primary care physician's office with left lower extremity cellulitis. He attempted to set up IV daptomycin on Wednesday, the insurance company did not approve his treatment as an outpatient or for home health and her primary care physician does not want her to wait an additional 3 days before she gets those and the patient has cellulitis, started like just a couple of months ago as she became very ill. She did, however, fully recovered between these episodes. She was given 850 mg of daptomycin daily at that time and it was very effective. She has no other complaints at this time. She was sent to the Emergency Room where she was evaluated and has had lab work done as well as blood cultures, was admitted to start the IV daptomycin and to consult our casework manager to assist with arrangement for outpatient treatment. The patient herself denied any other complaint other than redness and swelling of her left lower extremity. PAST MEDICAL HISTORY: Significant for degenerative disk disease, fibromyalgia, hypertension, hyperlipidemia, hypothyroidism, chronic obstructive pulmonary disease, morbid obesity, obstructive sleep apnea. PAST SURGICAL HISTORY: Significant for total abdominal hysterectomy and removal of benign tumor of her left leg and removal of benign tumor of her right breast. She did have esophagogastroduodenoscopy as well as colonoscopy. ALLERGIES: SHE IS ALLERGIC TO PENICILLIN, SULFA DRUGS, CEFUROXIME, AND MORPHINE. FAMILY HISTORY: She has 3 older sisters, one of them has Graves' disease. Her younger sister is transgender, but otherwise medically stable. Her father is still alive at the age of 92 and has frontotemporal dementia. Mother is alive at age of 83 and has had uterine cancer when she was 40 years old. She has generalized osteoarthritis. SOCIAL HISTORY: She is . She has 1 son who lives in [place]. She lives alone. She has a caregiver. She quit smoking when she was 22 years old. She smoked from age of 10 to the age of 22. She does not drink alcohol or use any recreational drugs. 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 MEDICATIONS: She is currently on following medications: She is on tizanidine 4 mg 3 times a day, lisinopril 40 mg once a day, diclofenac sodium 75 mg twice a day, oxycodone/APAP 5/325 one tablet every 4 hours as needed, lamotrigine 100 mg at bedtime, duloxetine 60 mg twice a day, trazodone 150 mg at bedtime, Rexulti 3 mg daily, Namenda 28 mg extended release once a day, furosemide 20 mg twice a day, Flonase 2 sprays to each nostril once a day, misoprostol 200 mcg tablet twice a day and thyroid 88 mcg once a day, capsaicin 1 application cream applied topically 3-4 times a day, Biotin 1000 mcg chewable tablet once a day, vitamin B complex 1 tablet once a day, melatonin 3 mg at bedtime, Prasterone for DHEA (dehydroepiandrosterone) 50 mg capsule once a day. REVIEW OF SYSTEMS: As per history of present illness. PHYSICAL EXAMINATION: GENERAL: On examining her, she was somewhat pale, but no jaundice, cyanosis or thyromegaly. No jugular venous distention. Mild swelling of the left lower extremity more than right. VITAL SIGNS: Her heart rate was 100, blood pressure was 140/89, temperature was 98.4, respiratory rate was 20, and oxygen saturation was 97% on room air. HEAD, EYES, EARS, NOSE AND THROAT: Showed normocephalic, atraumatic. NECK: Supple. HEART: Showed normal first and second heart sounds. No gallop or murmur. CHEST: Clear to auscultation. No crepitation or rhonchi. ABDOMEN: Distended, soft, nontender. NEUROLOGIC: She is awake, alert, responding appropriately. All cranial nerves intact. EXTREMITIES: She moves upper extremities without difficulty. She has mild tenderness and erythema of the left lower extremity. LABORATORY DATA: Showed a white cell count of 6600, hemoglobin 9, hematocrit 29, MCV 78 and platelet count 206,000. Her chemistry showed a serum sodium 134, potassium 4.4, chloride 99, bicarbonate 28, anion gap of 7, BUN 18, creatinine 1.4, estimated GFR was 38 mL per minute. Her glucose 131. Lactic acid was 2.5. Calcium was 9. Total bilirubin, AST, ALT, alkaline phosphatase were normal. Total protein was 7, albumin was 3.3. ASSESSMENT AND PLAN: In summary, this is a 59-year-old female patient who yet again came with left lower extremity cellulitis. She was started on daptomycin 850 mg once a day. SHE IS ALLERGIC TO PENICILLIN, CEPHALOSPORINS AND SULFA DRUGS. We will continue with this. We will consult our casework manager to assist with arrangement for her to have the antibiotic treatment as an outpatient. ISABELLE GIL MD DR: DANIELLE/elena JOB#: [id number] / [id number]
--- NOTE | 2019-08-27 14:14 | PN ---
DATE: 08/27/2019 SUBJECTIVE: The patient was admitted to start on IV daptomycin for left lower extremity cellulitis as her primary care physician could not arrange for her to have the treatment as an outpatient. She continued to have swelling and erythema of her left lower extremity; however, she denied any other complaint. PHYSICAL EXAMINATION: GENERAL: When I examined her this afternoon, she looked well, pale, but no jaundice, cyanosis or thyromegaly. No jugular venous distension. No lower limb edema. VITAL SIGNS: Her heart rate was 90, blood pressure was 108/68. The rest of exam is stable. PLAN: My plan is to arrange for a venous Doppler ultrasound of the left lower extremity as it is more swollen than the right and tomorrow we will consult our correctional counselor/case manager to see if we can arrange for her to be treated as an outpatient with daptomycin given her multiple ALLERGIES TO PENICILLIN, SULFA AND CEPHALOSPORIN. ISABELLE GIL MD DR: DANIELLE/elena JOB#: [id number] / [id number]
--- NOTE | 2019-08-27 15:53 | RAD ---
Left lower extremity venous doppler ultrasound History: Left low extremity swelling, cellulitis, pain Comparison: None Findings: Multiple grayscale, color, and duplex spectral analysis sonographic images were acquired of the left lower extremity veins to evaluate for the presence of DVT. There is normal phasicity. Normal compression, color-flow, and augmentation is demonstrated from the left common femoral to the popliteal veins. There is normal color flow of the proximal greater saphenous and profunda femoris veins. Calf veins are not well visualized due to patient's body habitus. Impression: 1. There is no evidence of deep venous thrombosis from the left common femoral to the popliteal veins. Electronically signed by: Luis Miguel Resendez MD (08/27/2019 3:50 PM) [id number]
[2019-08-27 16:33] VITALS: BP 126/68
[2019-08-27] MEDS: NORMAL SALINE IV SCH (16:33)
[2019-08-27] MEDS: DAPTOMYCIN IV SCH (16:33)
[2019-08-27 19:10] VITALS: BP 131/79
[2019-08-27] MEDS: MELATONIN 3 MG TABLET PO SCH (21:00)
[2019-08-27 22:08] VITALS: BP 136/73
[2019-08-27] MEDS: traZODone 150 MG TABLET. PO SCH (22:12)
[2019-08-27] MEDS: lamoTRIgine 100 MG TABLET. PO SCH (22:12)
[2019-08-28] MEDS: HYDROcodone/APAP 5/325MG 1 TAB TABLET PO PRN ×3 (04:24→12:51)
[2019-08-28 05:19] VITALS: BP 125/77
[2019-08-28] MEDS: LEVOTHYROXINE 88 MCG TABLET PO SCH (06:00)
[2019-08-28 06:28] LABS: CALCIUM 9.5 mg/dL (8.5-10.1); CREATININE 1.3 mg/dL (0.6-1.0); GFR 41.8; POTASSIUM 4.3 mmol/L (3.5-5.1)
--- NOTE | 2019-08-28 06:34 | NUR ---
Pt slept soundly all night. Pt states she never gets her pain below 4/10. Pain medication administered. Will continue to monitor.
[2019-08-28] MEDS: LISINOPRIL 20 MG TABLET PO SCH (08:58)
[2019-08-28] MEDS: FLUTICASONE 50MCG/NASAL SPRAY 16GM BOTTLE. NS SCH (08:58)
[2019-08-28] MEDS: cycloSPORINE 0.05% OPTH 1 DROP DROPERETTE OU SCH (08:58)
[2019-08-28] MEDS: MEMANTINE 10 MG TABLET. PO SCH (08:58)
[2019-08-28] MEDS: ASPIRIN ENTERIC COATED 81 MG TABLET.DR. PO SCH (08:58)
[2019-08-28] MEDS: tiZANidine 4 MG TABLET. PO SCH ×2 (08:58→12:52)
[2019-08-28] MEDS: GABAPENTIN 300 MG CAPSULE. PO SCH ×2 (08:58→12:52)
[2019-08-28] MEDS: busPIRone 15 MG TABLET. PO SCH ×2 (08:58→12:51)
[2019-08-28] MEDS: DULoxetine HCL 60 MG CAPSULE.DR PO SCH (08:58)
[2019-08-28] MEDS: VITAMIN B COMPLEX CAPSULE. PO SCH (08:58)
[2019-08-28] MEDS: FUROSEMIDE 20 MG TABLET PO SCH ×2 (08:59→12:52)
[2019-08-28] MEDS: DICLOFENAC SODIUM 25 MG TABLET.DR PO SCH (08:59)
[2019-08-28] MEDS: PRASTERONE 50 MG PO SCH (09:00)
[2019-08-28] MEDS: MISOPROSTOL PO SCH (09:00)
[2019-08-28 10:26] VITALS: BP 106/72
[2019-08-28 15:11] VITALS: BP 92/57
[2019-08-28] MEDS: NORMAL SALINE IV SCH (16:00)
[2019-08-28] MEDS: DAPTOMYCIN IV SCH (16:00)
--- NOTE | 2019-08-28 18:46 | DS ---
DATE OF DISCHARGE: 08/28/2019 HOSPITAL COURSE: The patient is a 59-year-old female patient who was admitted yet again for another episode of left lower extremity cellulitis. Her primary care physician could not arrange for antibiotic to be given as an outpatient and therefore, she was admitted and was started on IV daptomycin. Her erythema and swelling of her left lower extremity is improving. We did actually a venous Doppler ultrasound of her left lower extremity, which showed there is no evidence of deep vein thrombosis from the left common femoral to the popliteal veins. Her insurance approved the treatment as an outpatient and therefore, the patient will be discharged home to get her antibiotic and the patient would be discharged home with home health to get her antibiotic there. On questioning her, denied this afternoon, she denied any complaint. PHYSICAL EXAMINATION: GENERAL: When I examined her, she looked somewhat pale, but no jaundice, cyanosis or thyromegaly. No jugular venous distention. No limb edema. VITAL SIGNS: Her heart rate was 84, blood pressure was 92/57, temperature was 98.2, respiratory rate was 20, and oxygen saturation was 96%. HEAD, EYES, EARS, NOSE AND THROAT: Showed normocephalic, atraumatic. NECK: Supple. HEART: Showed normal first and second heart sounds. No gallop or murmur. CHEST: Clear to auscultation. No crepitation or rhonchi. ABDOMEN: Distended, soft, nontender. No guarding or rigidity. No organomegaly. All hernial orifices intact. Bowel sounds normal. NEUROLOGIC: She is awake, alert, responding appropriately. All cranial nerves intact. She moves extremities without difficulty. She ambulates with a quad cane. Her intake was 1190 with no output was recorded. LABORATORY DATA: This morning showed a white cell count 6600, hemoglobin 9, hematocrit 29, MCV 78 and platelet count 206,000. Her serum sodium was 138, potassium 4.3, chloride 102, bicarbonate 30, anion gap of 6, BUN 13, creatinine 1.3, estimated GFR was 42 mL per minute. Her glucose was 90, calcium was 9.5 and CK was 122. DISCHARGE MEDICATIONS: She was discharged home to continue on biotin 10,000 mcg tablet chewable once a day, Rexulti 3 mg daily, buspirone 15 mg 3 times a day, capsaicin cream applied topically 3 to 4 times a day, cyclosporine (Restasis) 1 drop to both eyes twice a day, daptomycin 850 mg IV daily, diclofenac sodium 75 mg twice a day, duloxetine 60 mg twice a day, Flonase 2 sprays to each nostril once a day. She was also discharged on furosemide 20 mg twice a day, lamotrigine 100 mg at bedtime, levothyroxine sodium 88 mcg once a day, lisinopril 40 mg once a day, melatonin 3 mg at bedtime, Namenda 80 mg once a day, misoprostol 200 mcg twice a day, oxycodone/APAP 5/325 one tablet every 4 hours, Prasterone 50 mg daily, tizanidine 4 mg 3 times a day, trazodone 150 mg at bedtime and vitamin B complex 1 tablet once a day. FINAL DISCHARGE DIAGNOSES: Left lower extremity cellulitis. Other medical problems include degenerative disk disease, fibromyalgia, hypertension, hyperlipidemia, hypothyroidism, chronic obstructive pulmonary disease, morbid obesity, obstructive sleep apnea. ISABELLE GIL MD DR: DANIELLE/elena JOB#: [id number] / [id number]
[2019-08-28] MEDS ORDERED: LACTOBACILLUS RHAMNOSUS GG 1 CAPSULE. PO SCH (21:00)
== END 2019-08-28 16:45 | disposition home health service (06) | DRG 603 ==
LOC: ER 14:35 → 1 SOUTH 17:40
PROVIDERS: ADMIT Internal Medicine; ATTEND Internal Medicine
DX: L03.116 Cellulitis of left lower limb (principal); Z68.43 Body mass index [BMI] 50.0-59.9, adult; I11.0 Hypertensive heart disease with heart failure; I50.9 Heart failure, unspecified; J44.9 Chronic obstructive pulmonary disease, unspecified; M79.7 Fibromyalgia; E78.5 Hyperlipidemia, unspecified; E03.9 Hypothyroidism, unspecified; E66.01 Morbid (severe) obesity due to excess calories; G47.33 Obstructive sleep apnea (adult) (pediatric); Z87.891 Personal history of nicotine dependence; Z88.5 Allergy status to narcotic agent; Z88.0 Allergy status to penicillin; Z88.2 Allergy status to sulfonamides; Z88.8 Allergy status to other drugs, medicaments and biological substances; Z90.710 Acquired absence of both cervix and uterus; Z80.49 Family history of malignant neoplasm of other genital organs; Z82.61 Family history of arthritis
CPT/HCPCS: 36415; 80048; 80053; 82550; 83605; 85025; 93971; 96365; J0878; 99285-25

== ENCOUNTER → 2020-03-14 | Outpatient (CLI) | payer OTHER, MEDICAID ==
[~2020-03-14] MED LIST changes: -CAPS42.513 TP; +CAPS42.514 TP; +MISO200T16 PO; -MISO200T4 PO; +OXYC-314 PO; -OXYC-411 PO; +OXYC1TAB20 PO
--- NOTE | 2020-03-14 16:25 | RAD ---
EXAM: Sacrum and coccyx, 3 views. HISTORY: Pain. COMPARISON: None. FINDINGS: 3 views of the sacrum and coccyx are obtained. The tip of the coccyx is not well seen due t o overlying soft tissue. There is no fracture, dislocation or subluxation. The sacroiliac joints are intact. There are clips overlying the pelvis. There is grade 1 anterolisthesis of L4 on L5. There is facet arthropathy and endplate remodeling at multiple lumbar levels. IMPRESSION: No acute osseous finding. Electronically signed by: Jane Woods MD (03/14/2020 4:23 PM) [id number]
== END ==
LOC: PMG 15:50
PROVIDERS: ATTEND Physician Assistant
DX: M53.3 Sacrococcygeal disorders, not elsewhere classified (principal)
CPT/HCPCS: 72220

== ENCOUNTER → 2020-08-23 | Outpatient (CLI) | payer OTHER, MEDICAID ==
[~2020-08-23] MED LIST changes: -LISI40TA PO; +LISI40TA6 PO
--- NOTE | 2020-08-23 16:06 | RAD ---
Examination: 2 views of the right humerus HISTORY: History of fall COMPARISON: None available FINDINGS: Humerus head is within the glenoid. Mild joint space loss identified in the glenohumeral joint, acrom ioclavicular likely degenerative changes. There is no obvious acute fracture identified. IMPRESSION: No acute osseous findings. Electronically signed by: Denny Smith MD (08/23/2020 4:04 PM) [id number]
== END ==
LOC: RAD 15:29
PROVIDERS: ATTEND Physician Assistant
DX: M79.621 Pain in right upper arm (principal)
CPT/HCPCS: 73060

== ENCOUNTER → 2020-09-11 | Outpatient (CLI) | payer OTHER, MEDICAID ==
--- NOTE | 2020-09-12 08:19 | RAD ---
Exam Date: 09/11/2020 3:05 PM XR KNEE_LT 1-2 VIEWS Indication: Reason: LEFT KNEE PAIN / Spl. Instructions: / History: . FINDINGS/ IMPRESSION: Small osteophytes are noted. No acute fracture or dislocation. Alignment and joint spaces are maintained. There is a joint effus ion. There is diffuse subcutaneous edema. Electronically signed by: Massimo Kenney MD (09/12/2020 8:16 AM) [id number]
== END ==
LOC: RAD 14:58
PROVIDERS: ATTEND Physician Assistant
DX: M25.462 Effusion, left knee (principal); M25.762 Osteophyte, left knee
CPT/HCPCS: 73560

== ENCOUNTER → 2021-02-03 | Outpatient (CLI) | payer OTHER, MEDICAID ==
[~2021-02-03] MED LIST changes: -DOXY100C2 PO; +DOXY100C3 PO; -DULO60CA6 PO; +DULO60CA7 PO; +MEMA28CA16 PO; -MEMA28CA5 PO; +TIZA-75 PO; -TIZA4TAB2 PO
--- NOTE | 2021-02-03 09:14 | RAD ---
Exam Date: 02/03/2021 8:06 AM XR LUMBAR SPINE 2-3V Indication: Reason: Lumbar pain / Spl. Instructions: / History: . COMPARISON: December 23, 2016 FINDINGS/ IMPRESSION: Diffuse osteopenia and body habitus limit evaluation. Levoscoliosis of the lumbar spine is noted. D egenerative changes in the SI joints. There is no significant spondylolisthesis. There is mild ante rior wedging of the L1 vertebral body which appears chronic. Other lumbar vertebral body heights are maintained. There is moderate to severe disc space narrowing at T12-L1 and L1-L2. Mild disc space narrowing seen at other levels. Small osteophytes and mild to moderate facet arthropathy are seen at multiple levels. The visualized soft tissues are within normal limits. Electronically signed by: Massimo Kenney MD (02/03/2021 9:11 AM) [id number]
== END ==
LOC: RAD 07:50
PROVIDERS: ATTEND Physical Medicine & Rehabilitation
DX: M41.86 Other forms of scoliosis, lumbar region (principal); M25.78 Osteophyte, vertebrae; M48.061 Spinal stenosis, lumbar region without neurogenic claudication; M85.88 Other specified disorders of bone density and structure, other site; M46.1 Sacroiliitis, not elsewhere classified; M48.8X6 Other specified spondylopathies, lumbar region; M48.56XA Collapsed vertebra, not elsewhere classified, lumbar region, initial encounter for fracture
CPT/HCPCS: 72100

== ENCOUNTER → 2021-07-17 | Outpatient (CLI) | payer OTHER, MEDICAID ==
[~2021-07-17] MED LIST changes: -MAGN250T2 PO; +MAGN250T4 PO
--- NOTE | 2021-07-17 15:31 | RAD ---
EXAM: Right shoulder, 3 views. HISTORY: Pain. COMPARISON: 09/09/2017. FINDINGS: 3 views of the right shoulder obtained. There is no acute fracture, dislocation or subluxat ion. There is glenohumeral joint space narrowing and marginal spurring. There is degenerative subchon dral sclerosis involving the acromion. There is decreased subacromial space. IMPRESSION: Moderate glenohumeral and mild acromioclavicular joint osteoarthritis. Decreased subacrom ial space suggesting chronic rotator cuff pathology. Electronically signed by: Jane Woods MD (07/17/2021 3:28 PM) [id number]
== END ==
LOC: RAD 14:52
PROVIDERS: ATTEND Physician Assistant
DX: M19.011 Primary osteoarthritis, right shoulder (principal); M75.81 Other shoulder lesions, right shoulder; M25.811 Other specified joint disorders, right shoulder
CPT/HCPCS: 73030